=== PATIENT | female | born 1985 | race Caucasian/White ===

== ENCOUNTER 2018-02-17 10:00 | Inpatient (IN) | payer BC, SELFPAY ==
[2018-02-10 11:23] VITALS: BMI 41.3
[2018-02-17] VITALS (17 sets, daily range): BP systolic 80–132; BP diastolic 38–80; PULSE 103–133; RESP 12–21; TEMP 36.1–36.9; O2SAT 95–100; BMI 41.9
[2018-02-17 10:44] LABS: Absolute Lymphocyte Count 1.83 X10^3/ul (0.83-4.51); Absolute Neutrophil Count 6.4 X10^3/uL (2.0-7.7); Basophil# 0.01 X10^3/uL; Basophil% 0.1 % (0-1); Eosinophil# 0.07 X10^3/uL; Eosinophils% 0.8 % (0-5); Hematocrit 37.9 % (37-47); Hemoglobin 12.3 g/dl (12.0-15.0); Lymphocyte # 1.83 X10^3/ul (4.0); Lymphocyte % 20.6 % (19-41); Mean Corp Hgb Conc 32.5 g/gl (32-36); Mean Corpuscular Hgb 27.6 pg (27.0-32.0); Mean Platelet Vol. 11.8 fl (6.2-12.0); Monocyte# 0.59 X10^3/uL; Monocyte% 6.6 % (0-10); Neutrophil # 6.36 X10^3/uL (2.7-7.7); Neutrophil % 71.7 % (47-70); Platelet Count 215 K/mm3 (150-450); RBC Distribution Width CV 13.6 % (11.6-14.6); RBC Distribution Width SD 41.6 fl (35.1-43.9); Red Blood Count 4.46 M/mm3 (4.2-5.4); White Blood Count 8.9 K/mm3 (4.4-11.0)
[2018-02-17 10:50] LABS: POSITIVE COUNT NO; POSITIVE DIFFERENTIAL NO; POSITIVE MORPHOLOGY NO
[2018-02-17] MEDS: Lactated Ringers 1,000 ML 150 ML IV (11:24)
[2018-02-17] MEDS: Sodium Citrate/Citric Acid 30 ML UDC PO (13:24)
[2018-02-17] MEDS: Cefazolin 2 GM in 0.9% Normal Saline 100 ML IV (13:26)
--- NOTE | 2018-02-17 13:36 | OP.PCM_ITS ---
Delivery Classification: Scheduled Final ROSINA: 02/24/18 Gestational age: 39 Weeks and 0 Days Indications for : Breech Description of Procedure: Patient taken to OR where spinal anesthesia was placed. She was prepped and draped in normal sterile fashion in a dorsal lithotomy position with a leftward tilt. After ensuring adequacy of anesthesia the Pfannensteil skin incision was made and carried through to the underlying fascia with a bovie. The fascia was incised in the midline and carried laterally with the Alexander scissors. The rectus muscles were in the midline and the peritoneum was entered bluntly. The bladder flap was dissected down carefully with the Metzenbaum scissors and blunt dissection. The uterus was incised in a transverse fashion and then incision extended with cephalocaudad traction. The fetus was breech & buttocks elevated to uterine incision. delivered via typical breech maneuvers. The 3VC cord was clamped and cut after 1 minute delay and the infant handed off to the waiting RN. The placenta was delivered w/ gentle traction and fundal massage and the uterus was exteriorized and cleared of all clots and debris. The uterine incision was closed with 1 vicryl suture in a running locked fashion. The bovie was used to further obtain further hemostasis of the uterine incision. A second imbricating layer of monocryl was placed. The uterus was returned to the p eritoneal cavity. The pelvis was irrigated & then cleared of all clots and debris. The uterine incision was reexamined and found to be hemostatic. Some se was placed over the uterine incision due to the denuded areas. The parietal peritoneum was reapproximated with running 3-0 vicryl suture. The fascia was closed with looped PDS suture in a running standard fashion. The subcutaneous tissue was examined & any bleeding bovie cauterized. The subcutaneous tissue was reapproximated with plain gut suture. The skin was closed in a subcuticular fashion by the HISTORY CARD CLERK with me present in the labor and delivery suite. I performed the remainder of the procedure w/ assistance. Amniotic Membrane Rupture Type: Artificial Amniotic Fluid Description: Clear Placenta Disposition: [facility] Specimen(s) sent to pathology: none Drain: Crockett to straight drain Cord Entanglement: None Cord Vessel Description: 3 Vessels Esitmated Blood Loss (ml): 750ml Infant Gender: Male (1 minute): 8 (5 minute): 9 Delayed cord clamping: Yes Pre-op Antibiotic Given: Ancef 2 grams IV x1
[2018-02-17] MEDS: Oxytocin 30 units/NS 500 ml 30 UNITS/500 ML IV.SOLN 167 UNITS IV (14:25)
--- NOTE | 2018-02-17 15:06 | PCM.IMED.CSR ---
E-Zborvwr-Qqk[facility]il[facility] PostOp Date of Procedure: 02/17/18 Primary Surgeon/Physician: Melisa Valencia shared services manager: Melyssa Dozier Pre-op Diagnosis: Breech Post-Op Diagnosis: Breech Surgery/Procedure Performed: Primary low transverse Section Description of Surgical Findings:: See operative report Estimated Blood Loss: 750ml Specimens Removed: placenta Drain: Crockett to straight drain Type of Anesthesia: Spinal
--- NOTE | 2018-02-17 15:09 | OP.PN_ITS ---
M-Uchgalt-Yuuzmqav[facility] PostOp Date of Procedure: 02/17/18 Primary Surgeon/Physician: Melisa Valencia executive chef: Melyssa Dozier Pre-op Diagnosis: Breech Post-Op Diagnosis: Breech Surgery/Procedure Performed: Primary low transverse Section Description of Surgical Findings:: See operative report Estimated Blood Loss: 750ml Specimens Removed: placenta Drain: Crockett to straight drain Type of Anesthesia: Spinal
[2018-02-17] MEDS: Ketorolac 30 MG/ML Syringe IV ×2 (15:10→21:57)
[2018-02-17] MEDS: Lactated Ringers 1,000 ML 999 ML IV (16:06)
[2018-02-17] MEDS: Lactated Ringers 1,000 ML 100 ML IV (16:52)
[2018-02-18] VITALS (11 sets, daily range): BP systolic 102–123; BP diastolic 70–77; PULSE 108–125; RESP 12–20; TEMP 36.3–37.2; O2SAT 96–98
[2018-02-18] MEDS: Ketorolac 30 MG/ML Syringe IV ×4 (04:23→22:23)
[2018-02-18 08:12] LABS: Hematocrit 28.6 % (37-47); Hemoglobin 9.4 g/dl (12.0-15.0); Mean Corp Hgb Conc 32.9 g/gl (32-36); Mean Corpuscular Hgb 28.4 pg (27.0-32.0); Mean Corpuscular Volume 86.4 fL (81-99); Mean Platelet Vol. 11.8 fl (6.2-12.0); Platelet Count 190 K/mm3 (150-450); RBC Distribution Width CV 13.5 % (11.6-14.6); Red Blood Count 3.31 M/mm3 (4.2-5.4)
--- NOTE | 2018-02-18 08:18 | PCM.PN.OB ---
Subjective: Pain controlled - Physical Exam General: Alert, Oriented x3 Abdomen: Soft, Non Tender, Non-Distended - ff mid & below umb; inc - bandage c/d/i Extremities: No Calf Tenderness Vital Signs Temp Pulse Resp BP Pulse Ox 97.4 F L 114 H 15 112/75 97 02/18/18 04:42 02/18/18 06:00 02/18/18 06:00 02/18/18 04:42 02/18/18 06:00 Oxygen Delivery Method Room Air Weight: 252 lb 3.341 oz Body Mass Index (BMI) 41.9 Intake and Output for Last 24 Hours 02/16/18 02/17/18 02/18/18 23:59 23:59 23:59 Intake Total 2719 / 2719 Output Total 400 / 400 1000 / 1000 Balance 2319 / 2319 -1000 / -1000 Laboratory Tests Past 24 Hrs 02/17/18 02/17/18 02/18/18 10:15 10:15 08:00 WBC 8.9 Pending RBC 4.46 Pending Hgb 12.3 Pending Hct 37.9 Pending MCV 85.0 Pending MCH 27.6 Pending MCHC 32.5 Pending RDW 13.6 Pending RDW Differential 41.6 Pending Plt Count 215 Pending MPV 11.8 Immature Gran % (Auto) 0.200 Neut % (Auto) 71.7 H Lymph % (Auto) 20.6 Edmunds % (Auto) 6.6 Eos % (Auto) 0.8 Baso % (Auto) 0.1 Absolute Neuts (auto) 6.4 Absolute Lymphs (auto) 1.83 Total Counted Not Reportable Blood Type AB POSITIVE Antibody Screen NEGATIVE Medical Necessity - Tobacco Use Smoking Status: Never smoker Assessment/Plan POD#1 Heme - cbc pending, mild tachycardia GI - ADAT - d/c granados later today Routine care
[2018-02-18 08:19] LABS: Scan Indicated on CBC? Y/N NO
--- NOTE | 2018-02-18 08:20 | DCINST_ITS ---
Discharge Diet: No Restrictions Discharge Activity: Return to Normal Activity, May Not Drive - for 2 weeks, May not drive while taking narcotic pain medications., May Shower, May Take a Tub Bath - in 7 days. May resume sexual activity in: 4-6 weeks Lifting Restrictions: 20 pounds Additional Activity Instructions:: Nothing in the vagina for 4-6 weeks. You may return to work/school in 6 weeks. Call your doctor if your incision/area has: Continuous Slow Oozing, Sudden Increased Bleeding, Increased Pain/ Swelling, Increased Redness, Foul Smelling Discharge Call your doctor if you observe: Fever of 101 or Higher, Using more than one pad per hour - for 2 hours Suture Line Care: Avoid Pulling/Pushing, Avoid Pinching/Bending Cleanse incision/area with: Keep Dressing Clean & Dry Additional Instructions: If you experience any of the following, contact your healthcare provider. * Bleeding that soaks a pad every hour for 2 hours * Fever 100.4 or higher * Unrelieved incision or abdominal pain * Swelling, redness, discharge or bleeding from your incision or episiotomy site * Your incision begins to separate * Problems urinating (including inability to urinate or burning while urinating). * Visual changes * Severe headache * Flu-like symptoms * Pain or redness in one of both of your breasts * Pain, warmth, tenderness or swelling in your legs, especially the calf area * Frequent nausea and vomiting * Symptoms of depression or anxiety If you experience any of the following, call 911 or go to the nearest Emergency Room. * Chest pain * Problems breathing * Seizure activity * Partial or complete paralysis of a body part, slurred speech, weakness or drooping of the face, or a sudden inability to walk or hold your balance Allergies/Adverse Reactions: Allergies pseudoephedrine Adverse Reaction (Verified 02/17/18 11:25) Other heart racing Medications to take at Discharge Claritin 10 mg PO DAILY PRN PRN 02/10/18 Multivitamin Tablet 1 tablet PO DAILY 02/10/18 Vitamin D 2,000 units PO DAILY 02/10/18 Zantac 150 mg PO DAILY 02/10/18 Ibuprofen [Motrin] 600 mg PO Q6H PRN PRN #60 tablet 02/18/18 Senna/Docusate Sodium [Senokot-S] 1 - 2 tab PO DAILY PRN #30 tablet 02/18/18 SimETHICONE [Mylicon] 80 mg PO PCHS PRN #30 tablet 02/18/18 The following prescriptions were given: Ibuprofen [Motrin] 600 mg PO Q6H PRN PRN #60 tablet PRN Reason: Mild Pain (-05/15) Senna/Docusate Sodium [Senokot-S] 1 - 2 tab PO DAILY PRN #30 tablet PRN Reason: Constipation SimETHICONE [Mylicon] 80 mg PO PCHS PRN #30 tablet PRN Reason: Indigestion/stomach pain Follow-Up: Call to make an appointment with your doctor for an incision check in 1-2 weeks. You will also need a 6 week post- follow up appointment. Test results from this visit will be discussed in further detail at your follow- up appointment, if applicable. Please Follow Up With: Heidi Villa MD - Call to make an appointment for an incision check in 1-2 [phone] When: You will need a post- check in 6 weeks. Primary Care Physician: Darcie Jaffe MD [Primary Care Provider] -
[2018-02-18] MEDS: Senna/Docusate Sodium 1 Tablet PO (10:52)
[2018-02-18] MEDS: 0.9% Saline Lock 10 ML Syringe IV (22:26)
[2018-02-19] VITALS: PULSE 110; RESP 17; TEMP 36.6
[2018-02-19] MEDS: Ketorolac 30 MG/ML Syringe IV ×2 (04:27→10:08)
[2018-02-19] MEDS: 0.9% Saline Lock 10 ML Syringe IV ×2 (04:28→10:09)
--- NOTE | 2018-02-19 07:58 | PCM.PN.OB ---
Subjective: pt seen at bedside, doing well. pt reports good pain control. lochia mild. breast feeding difficulties- group segment consultant helping. denies CP, SOB, dizziness. reports +BM. - Physical Exam General: Alert, Oriented x3 Abdomen: Soft, Non-Distended, - - fundus firm. incision dressing dry and intact Extremities: No Calf Tenderness Vital Signs Temp Pulse Resp BP Pulse Ox 97.9 F 110 H 17 119/76 96 02/19/18 00:00 02/19/18 00:00 02/19/18 00:00 02/18/18 20:30 02/18/18 15:20 Oxygen Delivery Method Room Air Weight: 114.4 kg Body Mass Index (BMI) 41.9 Intake and Output for Last 24 Hours 02/17/18 02/18/18 02/19/18 23:59 23:59 23:59 Intake Total 2719 / 2719 1803 / 1803 Output Total 400 / 400 2825 / 2825 Balance 2319 / 2319 -1022 / -1022 Laboratory Tests Past 24 Hrs 02/18/18 08:00 WBC 11.0 RBC 3.31 L Hgb 9.4 L Hct 28.6 L MCV 86.4 MCH 28.4 MCHC 32.9 RDW 13.5 RDW Differential 41.0 Plt Count 190 MPV 11.8 Medical Necessity - Tobacco Use Smoking Status: Never smoker Assessment/Plan POD#2 doing well\ routine care pain mgmt ambulation assistance
[2018-02-19 08:20] VITALS: BP 112/77; PULSE 108; RESP 16; TEMP 36.7; O2SAT 97
[2018-02-19 14:00] VITALS: BP 117/79; PULSE 112; RESP 16; TEMP 36.4; O2SAT 97
[2018-02-19] MEDS: Senna/Docusate Sodium 1 Tablet PO (17:15)
[2018-02-19] MEDS: Ibuprofen 600 MG Tablet PO (17:16)
[2018-02-19 19:50] VITALS: BP 126/80; PULSE 115; RESP 16; TEMP 36.6; O2SAT 96
[2018-02-20 01:50] VITALS: BP 123/79; PULSE 98; RESP 16; TEMP 36.6; O2SAT 98
[2018-02-20] MEDS: Ibuprofen 600 MG Tablet PO (08:01)
[2018-02-20 08:05] VITALS: BP 114/71; PULSE 107; RESP 16; TEMP 36.6; O2SAT 97
--- NOTE | 2018-02-20 09:12 | PCM.PN.OB ---
Subjective: pt seen at bedside, doing well. pt reports good pain control. lochia mild. Breast feeding. Voiding w/o difficulty. - Physical Exam General: Alert, Oriented x3 Abdomen: Soft, Non-Distended, - - fundus firm. incision dressing dry and intact Extremities: No Calf Tenderness Vital Signs Temp Pulse Resp BP Pulse Ox 97.9 F 107 H 16 114/71 97 02/20/18 08:05 02/20/18 08:05 02/20/18 08:05 02/20/18 08:05 02/20/18 08:05 Oxygen Delivery Method Room Air Weight: 114.4 kg Body Mass Index (BMI) 41.9 Intake and Output for Last 24 Hours 02/18/18 02/19/18 02/20/18 23:59 23:59 23:59 Intake Total 1803 / 1803 Output Total 2825 / 2825 Balance -1022 / -1022 Medical Necessity - Tobacco Use Smoking Status: Never smoker Assessment/Plan POD#3, doing well routine care pain mgmt dc home
--- NOTE | 2018-02-20 09:14 | PCM.DC.BLA ---
Discharge Summary Date of Admission: 02/17/18 Date of Discharge: 02/20/18 Summary: patient underwent primary Low transverse c/s for breech presentation- uncomplicated delivery and post op course. pt discharged home on POD#3. - Physical Exam Vital Signs Temp Pulse Resp BP Pulse Ox 97.9 F 107 H 16 114/71 97 02/20/18 08:05 02/20/18 08:05 02/20/18 08:05 02/20/18 08:05 02/20/18 08:05 Oxygen Delivery Method Room Air Weight: 114.4 kg Body Mass Index (BMI) 41.9 Intake and Output for Last 24 Hours 02/18/18 02/19/18 02/20/18 23:59 23:59 23:59 Intake Total 1803 / 1803 Output Total 2825 / 2825 Balance -1022 / -1022
--- OUTSIDE RECORDS SUMMARY | 2018-04-05 04:09 | XMS RPT_ITS ---
:1985 Author Organization [facility] Care Team Providers Name Role Phone NESHA LEONG (EXPLOSIVE ORDNANCE MANAGER) Attending Unavailable NEYHART ANAYA, HEIDI Attending Unavailable NEYHART ANAYA, HEIDI Referring Unavailable CARRINGTON BRUMFIELD Attending Unavailable NEYHART ANAYA, HEIDI Referring Unavailable ANGELA LIMA (CNM) Attending Unavailable NEYHART ANAYA, HEIDI Referring Unavailable SADA ANGELA (CNM) Referring Unavailable HASAN, ASHIA Attending Unavailable SADA ANGELA (CNM) Referring Unavailable MARY, THERESA (CNM) Attending Unavailable NEYHART ANAYA, HEIDI Referring Unavailable HASAN, ASHIA Referring Unavailable LIMA, ANGELA (CNM) Referring Unavailable SCARLET SIDHU Attending Unavailable MARY THERESA (CNM) Referring Unavailable MARY THERESA (CNM) Attending Unavailable NEYHART ANAYA, HEIDI Referring Unavailable MARY, THERESA (CNM) Attending Unavailable SADA ANGELA (CNM) Attending Unavailable NEYHART ANAYA, HEIDI Referring Unavailable MARY THERESA (CNM) Attending Unavailable NEYHART ANAYA, HEIDI Attending Unavailable DELANEY ANAYA HEIDI Referring Unavailable THERESA HERNANDEZ (CNM) Attending Unavailable THERESA HERNANDEZ (CNM) Attending Unavailable THERESA HERNANDEZ (CNM) Referring Unavailable ANGELA LIMA (CNM) Attending Unavailable SCARLET SIDHU Attending Unavailable ANGELA LIMA (CNM) Referring Unavailable ANGELA LIMA (CNM) Attending Unavailable ROCK ZHANG (EXPLOSIVE ORDNANCE MANAGER) Attending Unavailable DANIEL PHAM Attending Unavailable RAMIRO, KARMON Attending Unavailable RAMIRO, KARMON Attending Unavailable Shahab, Marlena Admitting Unavailable Shahab, Marlena Attending Unavailable Shahab, Marlena Referring Unavailable Ld, Darcie Primary Care Unavailable Ramiro, Karmon Admitting Unavailable Ramiro, Karmon Attending Unavailable Ramiro, Karmon Referring Unavailable Ld, Darcie Primary Care Unavailable Ramiro, Karmon Admitting Unavailable Ramiro, Karmon Attending Unavailable Ramiro, Karmon Referring Unavailable Ld, Darcie Primary Care Unavailable PROBLEMS PROBLEMS DATE TYPE CONDITION / CODE ATTENDING STATUS SOURCE 12/24/2017 Active 29 weeks gestation Active [facility] of / [facility] [place] Z3A.29(ICD-10) Repository 12/24/2017 Active Encounter for Active [facility] supervision of [facility] [place] other normal Repository , third trimester / Z34.83(ICD-10) 12/24/2017 Active Encounter for Active [facility] screening for [facility] [place] other suspected Repository endocrine disorder / Z13.29(ICD-10) 07/06/2017 Active Supervision of Active [facility] with [facility] [place] other poor Repository reproductive or obstetric history, unspecified trimester / O09.299(ICD-10) 11/26/2017 Active 27 weeks gestation Active [facility] of / [facility] [place] Z3A.27(ICD-10) Repository 12/28/2016 Active Thyrotoxicosis, Active [facility] unspecified [facility] [place] without thyrotoxic Repository crisis or storm / E05.90(ICD-10) 08/13/2017 Active Hypothyroidism, Active [facility] unspecified / [facility] [place] E03.9(ICD-10) Repository 08/13/2017 Active Encounter for Active [facility] [place] screening, Repository unspecified / Z36.9(ICD-10) 08/13/2017 Active 12 weeks gestation ANGELA LIMA Active [facility] of / (CNM) [facility] Z3A.12(ICD-10) Repository 07/16/2017 Active Encounter for NA Active [facility] supervision of [facility] other normal Repository , first trimester / Z34.81(ICD-10) 07/06/2017 Active Unknown / NA Active [facility] UNK(Unknown) [facility] [place] Repository PROCEDURES PROCEDURES No Procedure Records FoundRESULTS RESULTS PROGRESS Observed: 02/24/2018 Status: COMPLETED Source: [place] 10:47 AM [facility] REPOSITORY HNO ID: [id number] Author: Robb Rubio Service: (none) Author Type: Physician Type: Progress Notes Filed: 02/24/2018 1:08 PM Note Text: Renetta Lovell is a 32 year old female who presents for incision check. HPI: Patient presents for incision check. She is doing well. PAST MEDICAL HISTORY Diagnosis Date - Abnormal Pap smear of cervix ASCUS +HPV - Depression - GERD (gastroesophageal reflux disease) - Hiatal hernia - Migraines - Thyroid nodule PAST SURGICAL HISTORY Procedure Laterality Date - DELIVERY ONLY 02/17/2018 C/S low transverse - CHOLECYSTECTOMY HX 04/06/2016 - COLONOSCOPY - EGD Hiatal Hernia FAMILY HISTORY Problem Relation Age of Onset - other (Gout) Father - other (hypoglycemia) Sister - other (colon issues) Maternal Grandfather - other (lung issues) Paternal Grandmother - Psychiatry Paternal Grandfather Paranoid schizophrenia - Heart Paternal Grandfather Social History Marital status: Spouse name: Vlad Years of education: 16 Number of children: Occupational History Occupation Employer Comment [employer] Social History Main Topics Smoking status: Never Smoker Smokeless tobacco: Never Used Alcohol use: No Drug use: No Sexual activity: Yes Partners with: Male Current Outpatient Prescriptions: calcium carbonate/vitamin D3 (VITAMIN D-3 ORAL) Take 2,000 Units by mouth once daily. loratadine (CLARITIN) 10 mg tablet Take 10 mg by mouth once daily. PNV95/FERROUS FUMARATE/FA ( ORAL) Take 1 tablet by mouth once daily. ranitidine HCl (ZANTAC ORAL) Take by mouth. No current facility-administered medications for this visit. Allergies As of Date: 02/24/2018 Allergen Noted Reaction PSEUDOEPHEDRINE-GUAIFENESIN 04/16/2017 Other: See Comments Fully Assessed 02/08/2018 Allergies and current medication updated:Yes EXAM: LMP 05/20/2017 GENERAL: pleasant, female in no apparent distress ABDOMEN: soft, non-tender and no masses INCISION: bandage removed, c/d/i ASSESSMENT AND PLAN: 32yo female for incision check Incision healing well F/u for 6wk PP check or PRN Robb Rubio MD DISCHARGE SUMMARY Observed: 02/20/2018 Status: F Source: [place] 9:16 AM [facility] REPOSITORY [facility] Medical Records Department [address] [place] [address] Discharge Summary 02/20/1814 MR#: [id number] Acct: [id number] Name: RENETTA LOVELL Rep #: [id number] : 1985 32 From: Heidi Anaya MD PCP: Darcie Jaffe MD Status: ADM IN Location: [place] [address] Discharge Summary Date of Admission: 02/17/18 Date of Discharge: 02/20/18 Summary: patient underwent primary Low transverse c/s for breech presentation- uncomplicated delivery and post op course. pt discharged home on POD#3. - Physical Exam Vital Signs Temp Pulse Resp BP Pulse Ox 97.9 F 107 H 16 114/71 97 02/20/18 08:05 02/20/18 08:05 02/20/18 08:05 02/20/18 08:05 02/20/18 08:05 Oxygen Delivery Method Room Air Weight: 114.4 kg Body Mass Index (BMI) 41.9 Intake and Output for Last 24 Hours Intake Total 1803 / 1803 Output Total 2825 / 2825 Balance -1022 / -1022 02/20/18 0916 <Electronically signed by Heidi Anaya MD> Date Heidi Villa MD Cosigner Signature (if applicable): Date CC: Darcie Jaffe MD; Heidi Villa MD Signed PROGRESS Observed: 02/18/2018 Status: COMPLETED Source: [place] 2:17 PM [facility] REPOSITORY HNO ID: [id number] Author: Jessica Fagan LPN Service: (none) Author Type: (none) Type: Progress Notes Filed: 02/18/2018 2:18 PM Note Text: Pt delivered via C/S at [facility] on 02/17/[address] Roman. See OB Outcome note. Jessica Fagan LPN DISCHARGE INSTRUCTION Observed: 02/18/2018 Status: F Source: [place] 8:20 AM [facility] REPOSITORY [facility] Medical Records Department [address] [place] [address] Instructions for Home/Discharge Instructions 02/18/18819 MR#: [id number] Acct: [id number] Name: RENETTA LOVELL Rep #: [id number] : 1985 32 From: Heidi Anaya MD PCP: Darcie Jaffe MD Status: ADM IN Discharge Diet: No Restrictions Discharge Activity: Return to Normal Activity, May Not Drive - for 2 weeks, May not drive while taking narcotic pain medications., May Shower, May Take a Tub Bath - in 7 days. May resume sexual activity in: 4-6 weeks Lifting Restrictions: 20 pounds Additional Activity Instructions:: Nothing in the vagina for 4-6 weeks. You may return to work/school in 6 weeks. Call your doctor if your incision/area has: Continuous Slow Oozing, Sudden Increased Bleeding, Increased Pain/ Swelling, Increased Redness, Foul Smelling Discharge Call your doctor if you observe: Fever of 101 or Higher, Using more than one pad per hour - for 2 hours Suture Line Care: Avoid Pulling/Pushing, Avoid Pinching/Bending Cleanse incision/area with: Keep Dressing Clean AND Dry Additional Instructions: If you experience any of the following, contact your healthcare provider. * Bleeding that soaks a pad every hour for 2 hours * Fever 100.4 or higher * Unrelieved incision or abdominal pain * Swelling, redness, discharge or bleeding from your incision or episiotomy site * Your incision begins to separate * Problems urinating (including inability to urinate or burning while urinating). * Visual changes * Severe headache * Flu-like symptoms * Pain or redness in one of both of your breasts * Pain, warmth, tenderness or swelling in your legs, especially the calf area * Frequent nausea and vomiting * Symptoms of depression or anxiety If you experience any of the following, call 911 or go to the nearest Emergency Room. * Chest pain * Problems breathing * Seizure activity * Partial or complete paralysis of a body part, slurred speech, weakness or drooping of the face, or a sudden inability to walk or hold your balance Allergies/Adverse Reactions: Allergies pseudoephedrine Adverse Reaction (Verified 02/17/18 11:25) Other heart racing Medications to take at Discharge Claritin 10 mg PO DAILY PRN PRN 02/10/18 Multivitamin Tablet 1 tablet PO DAILY 02/10/18 Vitamin D 2,000 units PO DAILY 02/10/18 Zantac 150 mg PO DAILY 02/10/18 Ibuprofen [Motrin] 600 mg PO Q6H PRN PRN #60 tablet 02/18/18 Senna/Docusate Sodium [Senokot-S] 1 - 2 tab PO DAILY PRN #30 tablet 02/18/18 SimETHICONE [Mylicon] 80 mg PO PCHS PRN #30 tablet 02/18/18 The following prescriptions were given: Ibuprofen [Motrin] 600 mg PO Q6H PRN PRN #60 tablet PRN Reason: Mild Pain (1-310) Senna/Docusate Sodium [Senokot-S] 1 - 2 tab PO DAILY PRN #30 tablet PRN Reason: Constipation SimETHICONE [Mylicon] 80 mg PO PCHS PRN #30 tablet PRN Reason: Indigestion/stomach pain Follow-Up: Call to make an appointment with your doctor for an incision check in 1-2 weeks. You will also need a 6 week post- follow up appointment. Test results from this visit will be discussed in further detail at your follow-up appointment, if applicable. Please Follow Up With: Heidi Villa MD - Call to make an appointment for an incision check in 1-2 [phone] When: You will need a post- check in 6 weeks. Primary Care Physician: Darcie Jaffe MD [Primary Care Provider] - 02/18/18 0820 <Electronically signed by Heidi Anaya MD> Date Heidi Villa MD CC: Darcie Jaffe MD CBC-COMPLETE BLOOD CNT Collected: 02/18/2018 Status: F Source: [place] NO DIFF 8:00 AM [facility] REPOSITORY Order Comment: Comments: Day #1 Reason for Laboratory Test TYPE CODE TESTS RESULT OUT OF RANGE REFERENCE UNITS LAB L100.1000 4.4-11.0 K/mm3 Normal WBC 11.0 LAB L100.1200 4.2-5.4 M/mm3 Low RBC 3.31 LAB L100.1300 12.0-15.0 g/dl Low HGB 9.4 LAB L100.1400 37-47 % Low HCT 28.6 LAB L100.1500 81-99 fL Normal MCV 86.4 LAB L100.1600 27.0-32.0 pg Normal MCH 28.4 LAB L100.1700 32-36 g/gl Normal MCHC 32.9 LAB L100.1810 11.6-14.6 % Normal RDW CV 13.5 LAB L100.1820 35.1-43.9 fl Normal RDW SD 41.0 LAB L100.1900 150-450 K/mm3 Normal PLT 190 LAB L100.2000 6.2-12.0 fl Normal MPV 11.8 Performed By: #### L100.0500 #### [facility] [address] [place], [address] HOSP Observed: 02/18/2018 Status: COMPLETED Source: [place] 12:00 AM [facility] REPOSITORY Patient Update (WOOB) RENETTA LOVELL ([id number]) 1985 F Date Time Provider Department 02/18/18 ROBB RUBIO During your visit today, we recorded the following information about you: Jessica Fagan MARLENE 02/18/2018 2:18 PM Signed Pt delivered via C/S at [facility] on 02/17/[address] Rubio and RENETTA. See OB Outcome note. Jessica Jordanruthy ROSARIO Allergies As of Date: 02/18/2018 Noted Allergy Reaction PSEUDOEPHEDRINE-GUAIFENESIN 04/16/2017 14 - Other: See Comments Date Reviewed: 02/08/2018 Reviewed by: Robb Rubio - Fully Assessed Prescriptions as of 02/18/2018 Sig: VITAMIN D-3 ORAL Take 2,000 Units by mouth onc* LORATADINE 10 MG TABLET Take 10 mg by mouth once odell* ORAL Take 1 tablet by mouth once d* ZANTAC ORAL Take by mouth. Problem List As Of Date 02/18/2018 Noted Resolved Biliary dyskinesia [K82.8] INVALID FOR* GERD (gastroesophageal reflux disease) [K21.9] Depression [F32.9] Hiatal hernia [K44.9] Migraines [G43.909] Subclinical hyperthyroidism [E05.90] INVALID FOR* Current with history of spontaneous a*INVALID FOR* More... History of depression [Z86.59] INVALID FOR* More... Obesity in [O99.210] INVALID FOR* More... History of goiter [Z86.39] INVALID FOR* More... Encounter Status:Closed by JESSICA FAGAN LPN on 02/18/18 OPERATIVE REPORT Observed: 02/17/2018 Status: F Source: [place] 3:12 PM [facility] REPOSIT[facility] Medical Records Department [address] [place] [address] Operative Report 02/17/18 1334 MR#: [id number] Acct: [id number] Name: RENETTA LOVELL Rep #: [id number] : 1985 32 From: Robb Rubio PCP: Darcie Jaffe MD Status: ADM IN Y Location: [id number] Delivery Classification: Scheduled Final ROSINA: 02/24/18 Gestational age: 39 Weeks and 0 Days Indications for : Breech Description of Procedure: Patient taken to OR where spinal anesthesia was placed. She was prepped and draped in normal sterile fashion in a dorsal lithotomy position with a leftward tilt. After ensuring adequacy of anesthesia the Pfannensteil skin incision was made and carried through to the underlying fascia with a bovie. The fascia was incised in the midline and carried laterally with the Alexander scissors. The rectus muscles were in the midline and the peritoneum was entered bluntly. The bladder flap was dissected down carefully with the Metzenbaum scissors and blunt dissection. The uterus was incised in a transverse fashion and then incision extended with cephalocaudad traction. The fetus was breech AND buttocks elevated to uterine incision. Infant delivered via typical breech maneuvers. The 3VC cord was clamped and cut after 1 minute delay and the infant handed off to the waiting RN. The placenta was delivered w/ gentle traction and fundal massage and the uterus was exteriorized and cleared of all clots and debris. The uterine incision was closed with 1 vicryl suture in a running locked fashion. The bovie was used to further obtain further hemostasis of the uterine incision. A second imbricating layer of monocryl was placed. The uterus was returned to the peritoneal cavity. The pelvis was irrigated AND then cleared of all clots and debris. The uterine incision was reexamined and found to be hemostatic. Some se was placed over the uterine incision due to the denuded areas. The parietal peritoneum was reapproximated with running 3- 0 vicryl suture. The fascia was closed with looped PDS suture in a running standard fashion. The subcutaneous tissue was examined AND any bleeding bovie cauterized. The subcutaneous tissue was reapproximated with plain gut suture. The skin was closed in a subcuticular fashion by the GRANITE SANDBLASTER APPRENTICE with me present in the labor and delivery suite. I performed the remainder of the procedure w/ assistance. Amniotic Membrane Rupture Type: Artificial Amniotic Fluid Description: Clear Placenta Disposition: [facility] Specimen(s) sent to pathology: none Drain: Crockett to straight drain Cord Entanglement: None Cord Vessel Description: 3 Vessels Esitmated Blood Loss (ml): 750ml Gender: Male (1 minute): 8 (5 minute): 9 Delayed cord clamping: Yes Pre-op Antibiotic Given: Ancef 2 grams IV x1 02/17/18 1512 <Electronically signed by Robb Rubio > Date Robb Rubio CC: Darcie Jaffe MD; Robb Rubio Signed CBC W/DIFF, AUTOMATED Collected: 02/17/2018 Status: F Source: [place] 10:15 AM [facility] REPOSITORY TYPE CODE TESTS RESULT OUT OF RANGE REFERENCE UNITS LAB L100.1000 4.4-11.0 K/mm3 Normal WBC 8.9 LAB L100.1200 4.2-5.4 M/mm3 Normal RBC 4.46 LAB L100.1300 12.0-15.0 g/dl Normal HGB 12.3 LAB L100.1400 37-47 % Normal HCT 37.9 LAB L100.1500 81-99 fL Normal MCV 85.0 LAB L100.1600 27.0-32.0 pg Normal MCH 27.6 LAB L100.1700 32-36 g/gl Normal MCHC 32.5 LAB L100.1810 11.6-14.6 % Normal RDW CV 13.6 LAB L100.1820 35.1-43.9 fl Normal RDW SD 41.6 LAB L100.1900 150-450 K/mm3 Normal PLT 215 LAB L100.2000 6.2-12.0 fl Normal MPV 11.8 LAB L100.2100 47-70 % High NEUT% 71.7 LAB L100.2200 19-41 % Normal LY% 20.6 LAB L100.2300 0-10 % Normal MONO% 6.6 LAB L100.2400 0-5 % Normal EO% 0.8 LAB L100.2500 0-1 % Normal BASO% 0.1 LAB L100.2550 0.0-0.9 % Normal IM GRAN % 0.200 Result Comment: IG% - Immature Granulocytes (promyelocytes, myelocytes and metamyelocytes) > 1% indicates that a LEFT SHIFT is Present. LAB L100.2620 2.0-7.7 X10 3/uL Normal Absolute Neut 6.4 LAB L100.2720 0.83-4.51 X10 3/ul Normal Absolute Lymph 1.83 Performed By: #### L100.0100 #### [facility] [address] [place], [address] TYPE AND SCREEN Collected: 02/17/2018 Status: F Source: [place] 10:15 AM [facility] REPOSITORY Order Comment: Reason for Type AND Screen/Red Cells: SURGERY Type of Surgery: TYPE CODE TESTS RESULT OUT OF RANGE REFERENCE UNITS LAB B10.0800 AB Normal BLOOD TYPE GEL POSITIVE LAB B100.4000 Normal Antibody NEGATIVE Screen Performed By: #### B101.7450 #### [facility] [address] [place], [address] PROGRESS Observed: 02/08/2018 Status: COMPLETED Source: [place] 4:16 PM [facility] REPOSITORY HNO ID: [id number] Author: Robb Rubio Service: (none) Author Type: Physician Type: Progress Notes Filed: 02/08/2018 4:19 PM Note Text: HISTORY and PHYSICAL Renetta Lovell is a 32 year old female who presents for pre- op visit. HPI: Patient presents for pre-op visit. PAST MEDICAL HISTORY Diagnosis Date - Abnormal Pap smear of cervix ASCUS +HPV - Depression - GERD (gastroesophageal reflux disease) - Hiatal hernia - Migraines - Thyroid nodule PAST SURGICAL HISTORY Procedure Laterality Date - CHOLECYSTECTOMY HX 04/06/2016 - COLONOSCOPY - EGD Hiatal Hernia FAMILY HISTORY Problem Relation Age of Onset - other (Gout) Father - other (hypoglycemia) Sister - other (colon issues) Maternal Grandfather - other (lung issues) Paternal Grandmother - Psychiatry Paternal Grandfather Paranoid schizophrenia - Heart Paternal Grandfather Social History Marital status: Spouse name: Vlad Years of education: 16 Number of children: Occupational History Occupation Employer Comment [employer] Social History Main Topics Smoking status: Never Smoker Smokeless tobacco: Never Used Alcohol use: No Drug use: No Sexual activity: Yes Partners with: Male Current Outpatient Prescriptions: calcium carbonate/vitamin D3 (VITAMIN D-3 ORAL) Take 2,000 Units by mouth once daily. loratadine (CLARITIN) 10 mg tablet Take 10 mg by mouth once daily. ranitidine HCl (ZANTAC ORAL) Take by mouth. PNV95/FERROUS FUMARATE/FA ( ORAL) Take 1 tablet by mouth once daily. No current facility-administered medications for this visit. Allergies As of Date: 02/08/2018 Allergen Noted Reaction PSEUDOEPHEDRINE-GUAIFENESIN 04/16/2017 Other: See Comments Fully Assessed 02/08/2018 Allergies and current medication updated:Yes EXAM: BP 110/72 Wt 246 lb (111.6kg) LMP 05/20/2017 GENERAL: pleasant, female in no apparent distress CHEST: Clear to auscultation Normal inspiratory effort Regular rate and rhythm ABDOMEN: soft, non-tender and no masses PELVIC: deferred NEURO: alert and oriented x3,exam grossly non-focal EXTREMITIES: normal ASSESSMENT AND PLAN: 32yo female for primary for breech Admit to [facility]. MOD - for breech. Patient declines version. Discussed R/B/A AND informed consent signed. Routine care. Robb Rubio MD GROUP B STREP PCR Collected: 01/28/2018 Status: F Source: [place] 9:40 AM [facility] REPOSITORY TYPE CODE TESTS RESULT OUT OF REFERENCE UNITS RANGE LAB GBPCRT Negative for GROUP Group B B STREP PCR Streptococcus by PCR. Performed By: #### GBPCR #### [facility] [address] [place], [place] [address] PROGRESS Observed: 01/20/2018 Status: COMPLETED Source: [place] 4:08 PM [facility] REPOSITORY HNO ID: [id number] Author: Yuli Emerson Ma Service: (none) Author Type: (none) Type: Progress Notes Filed: 01/20/2018 5:03 PM Note Text: Patient identified by name and date of . Renetta Lovell presents today for a vaccination of Tdap. Patient denies an allergy to latex: yes Patient denies a severe (life-threatening) allergy to a previous dose of Tdap, DTP, DTaP, DT or Td vaccine. Yes Patient denies history of epilepsy or neurological problems: Yes Patient is afebrile and denies being moderately or severely ill: Yes Patient denies history of Guillain-Unicoi Syndrome (a severe paralytic illness): Yes Tdap Adacel injection was given without incident. See immunizations for details of immunizations administered today. VIS sheet provided: Yes Provider Angela Lima CNM was present in office at time of injection. Yuli Emerson Ma PROGRESS Observed: 01/18/2018 Status: COMPLETED Source: [place] 9:05 AM [facility] REPOSITORY HNO ID: [id number] Author: Lorraine Negro RN Service: (none) Author Type: (none) Type: Progress Notes Filed: 01/18/2018 9:08 AM Note Text: CLASS Date Attended: January 17, 2018 Introduction Credentials Expectations of a 3-hour class 1. Review of handouts Stages of labor video Stages to call the doctor 1. SROM 2. Cervical changes 3. Bleeding vs. bloody show 4. Decreased movement Hospital Procedures 1. Internal/external monitors 2. IV therapy 3. AROM 4. Pitocin Pain Management 1. Epidural 2. Other pain medications 3. No medicinal comfort measures 4. Breathing/pushing Delivery methods 1. 2. Forceps 3. Vacuum extractor Physician presentations 1. OB-skills instructor 2. Double Reamer Operator 1. Mom's first hour 2. baby's first hour 3. baby's discharge protocol Completed childbirth education class. Lorraine Negro RN CNCNPATED Observed: 01/17/2018 Status: COMPLETED Source: [place] 12:00 AM [facility] REPOSITORY Education (WOOB) RENETTA LOVELL ([id number]) 1985 F Date Time Provider Department 01/17/18 NURSE PNOB [facility] WSTR WOOB Reason for Visit: Class [4072] Progress Notes: Lorraine Negro RN 01/18/2018 9:08 AM Signed CLASS Date Attended: January 17, 2018 Introduction Credentials Expectations of a 3-hour class 1. Review of handouts Stages of labor video Stages to call the doctor 1. SROM 2. Cervical changes 3. Bleeding vs. bloody show 4. Decreased movement Hospital Procedures 1. Internal/external monitors 2. IV therapy 3. AROM 4. Pitocin Pain Management 1. Epidural 2. Other pain medications 3. No medicinal comfort measures 4. Breathing/pushing Delivery methods 1. 2. Forceps 3. Vacuum extractor Physician presentations 1. OB-skills instructor 2. Double Reamer Operator 1. Mom's first hour 2. baby's first hour 3. baby's discharge protocol Completed childbirth education class. Lorraine Negro RN During your visit today, we recorded the following information about you: Allergies As of Date: 01/17/2018 Noted Allergy Reaction PSEUDOEPHEDRINE-GUAIFENESIN 04/16/2017 14 - Other: See Comments Date Reviewed: 01/14/2018 Reviewed by: Scarlet Sidhu - Fully Assessed Prescriptions as of 01/17/2018 Sig: VITAMIN D-3 ORAL Take 2,000 Units by mouth onc* LORATADINE 10 MG TABLET Take 10 mg by mouth once odell* ZANTAC ORAL Take by mouth. LACTOBACILLUS ACIDOPHILUS 10 * Take by mouth once daily. POLYETHYLENE GLYCOL 3350 17 G* Take 17 g by mouth twice odell* ORAL Take 1 tablet by mouth once d* Encounter Status:Closed by LORRAINE NEGRO RN on 01/18/18 PROGRESS Observed: 01/14/2018 Status: COMPLETED Source: [place] 12:53 PM [facility] REPOSITORY HNO ID: [id number] Author: Scarlet Sidhu Service: (none) Author Type: Physician Type: Progress Notes Filed: 01/14/2018 12:54 PM Note Text: A fountain intrauterine The size is AGA Estimated Date of Delivery: 02/24/18 EGA = 34w1d The anatomy appears normal in the areas visualized. The amniotic fluid volume is normal. There is no evidence of effusions and/ or hydrops. The placenta is fundal. RECOMMENDATIONS: - Self-assessment of kick counts - Follow up ultrasound as clinically indicated Observed: 01/07/2018 Status: F Source: [place] BACT/CAND VAG GRM ST 3:00 PM [facility] REPOSITORY Sp. Request/Comment: - Swab Smear Result - BACTERIAL VAGINOSIS RESULT: Stain results consistent with normal vaginal cassy. Moderate Polymorphonuclear leukocytes No Yeast observed Performed By: #### BVCNSM #### [facility] [address] [place], [place] [id number] TSH Collected: 12/24/2017 Status: F Source: [place] 4:32 PM [facility] REPOSITORY TYPE CODE TESTS RESULT OUT OF RANGE REFERENCE UNITS LAB TSH 0.400-5.500 uU/mL Low TSH 0.161 Result Comment: If the patient is , TSH reference range varies by gestational period: First Trimester 0.100-2.500 uU/mL Second Trimester 0.200-3.000 uU/mL Third Trimester 0.300-3.000 uU/mL References: 1. Corral L, Regla M, Jerry EK, et al. Management of Thyroid Dysfunction during and : An Endocrine Society Clinical Practice Guideline. J Clin Endocrinol Metab, 2012:97:7203-9074. 2. Luther MCELROY. Overview of thyroid disease in . UpToDate. 2016. Accessed on August 23, 2015. Performed By: #### TSH, FT4, T3 #### [facility] [address] [place], [place] [address] FREE T4 Collected: 12/24/2017 Status: F Source: [place] 4:32 PM [facility] REPOSITORY TYPE CODE TESTS RESULT OUT OF RANGE REFERENCE UNITS LAB FT4 0.9-1.7 ng/dL Free T4 1.1 Performed By: #### TSH, FT4, T3 #### [facility] [address] [place], [place] [address] T3 Collected: 12/24/2017 Status: F Source: [facility] 4:32 PM [place] [place] REPOSITORY TYPE CODE TESTS RESULT OUT OF RANGE REFERENCE UNITS LAB T3 79-165 ng/dL High T3 186 Performed By: #### TSH, FT4, T3 #### [facility] [address] [place], [place] [address] CBC AND DIFFERENTIAL Collected: 11/26/2017 Status: F Source: [place] 3:48 PM [facility] REPOSITORY TYPE CODE TESTS RESULT OUT OF REFERENCE UNITS RANGE LAB WBC 3.70-11.00 k/uL WBC 8.65 LAB RBC 3.90-5.20 m/uL RBC 3.97 LAB HGB 11.5-15.5 g/dL Hemoglobin 11.7 LAB HCT 36.0-46.0 % Hematocrit 36.7 LAB MCV 80.0-100.0 fL MCV 92.4 LAB MCH 26.0-34.0 pG MCH 29.5 LAB MCHC 30.5-36.0 g/dL MCHC 31.9 LAB RDWCV 11.5-15.0 % RDW-CV 12.8 LAB PLTCT 150-400 k/uL Platelet Count 234 LAB MPV 9.0-12.7 fL MPV 11.2 LAB ANEUT % Neut% 70.9 LAB AANEUT 1.45-7.50 k/uL Abs Neut 6.13 LAB ALYMP % Lymph% 22.7 LAB AALYMP 1.00-4.00 k/uL Abs Lymph 1.96 LAB AMONO % Denton% 5.3 LAB AAMONO <0.87 k/uL Abs [place]enton 0.46 LAB AEOS % Eosin% 0.8 LAB AAEOS <0.46 k/uL Abs Eosin 0.07 LAB ABASO % Baso% 0.3 LAB AABASO <0.11 k/uL Abs Baso 0.03 LAB AUNRBC 0 /100 WBC NRBCs 0.0 LAB ABNRBC <0.01 k/uL Absolute nRBC <0.01 LAB DTYP DTYPE Auto Diff Performed By: #### CBCDIF #### [facility] [address] [place] [id number] 50G, 1HR GEST. Collected: 11/26/2017 Status: F Source: [facility] 3:48 PM [facility] REPOSITORY TYPE CODE TESTS RESULT OUT OF REFERENCE UNITS RANGE LAB GLUP 74-134 mg/dL Glucose 118 Screen, Preg Result Comment: [place] Congress of Obstetricians and Gynecologists (Rose/Coustan) guidelines state a gestational diabetes mellitus positive screen is made, in women not previously diagnosed with overt diabetes, when the 1 hr plasma glucose level is equal to or above 140 mg/dL. The [facility] Scientific Specialist and [facility] recommends a 135 mg/dL cutoff. Performed By: #### GLTGST #### [facility] [address] [place] [id number] PROGRESS Observed: 11/26/2017 Status: COMPLETED Source: [place] 2:41 PM [facility] REPOSITORY O ID: [id number] Author: Dary Celis Ma Service: (none) Author Type: (none) Type: Progress Notes Filed: 11/26/2017 3:13 PM Note Text: 32 year old female here for INACTIVATED INFLUENZA VACCINE. 5668-0854 Season Patient is identified by name and date of : Yes [] CONTRAINDICATIONS color enhanced section Age less than 6 months? No Allergy to eggs, chicken, chicken feathers, or chicken dander? No Allergy to thimerosal (a preservative) or formaldehyde, gelatin? No History of severe reaction to any vaccine component or a previous dose of influenza vaccination? No History of Guillain-Unicoi Syndrome within 6 weeks after a previous influenza vaccine? No Patient is not moderately or severely ill? No Current temperature greater or equal to 100.4F? No History of Bone Marrow Transplant prior 6 months or solid organ transplant in the past 3 months ? No History of fainting after a prior injection or medical procedure? No- ? If patient has fainted in the past, the CDC recommends sitting or lying down for 15 minutes after the vaccination. [] VERIFICATION color enhanced section Was the answer Yes for any of the above contraindications? No contraindications present. Acceptable to proceed with vaccine. Patient/guardian agrees the above answers are true to the best of their knowledge? Yes Flu vaccine information sheet given? Yes See immunization activity in [facility] for details of immunizations adminstered today. Patient age: [age] year old For The 9837-1124 Flu Season 6-35 months old: Fluzone 0.25 ml - IM (Preservative Free) 3 years of age: Fluzone 0.5 ml - IM (Preservative Free) 3 years and older: Fluzone 0.5 ml- IM-(with Preservatives) 65+ years old: 2-49 years old Fluzone High-Dose 0.5 ml - IM (Preservative Free) FLUMIST- intranasal REMEMBER: If patient is less than 9 years of age and this is the first vaccine of Influenza to be received in any flu season, they should receive a second dose in one months time. Observed: 11/17/2017 Status: F Source: [place] BACT/CAND VAG GRM [facility] 10:30 AM [facility] [place] REPOSITORY Sp. Request/Comment: - Swab Smear Result - BACTERIAL VAGINOSIS RESULT: Stain results consistent with normal vaginal cassy. No Yeast observed Moderate Polymorphonuclear leukocytes Performed By: #### BVCNSM #### [facility] [address] [place], [place] [address] PROGRESS Observed: 10/08/2017 Status: COMPLETED Source: [place] 4:13 PM [facility] REPOSITORY HNO ID: [id number] Author: Scarlet Sidhu Service: (none) Author Type: Physician Type: Progress Notes Filed: 10/08/2017 4:13 PM Note Text: A fountain? fetus in utero with symmetric measurements Adequate growth (AGA). Estimated Date of Delivery: 02/24/18 EGA = 20w1d The anatomy appears normal. There are no evident malformations and /or effusions. No genetic markers are noted. The amniotic fluid volume is within normal limits. The sensitivity of ultrasound in the detection of malformations overall is approximately 35%. RECOMMENDATIONS: - Follow up ultrasound as clinically indicated SEQUENT SCRN SECOND Collected: 09/10/2017 Status: F Source: [place] [facility] PATIENTS ONLY 4:27 PM [facility] REPOSITORY TYPE CODE TESTS RESULT OUT OF REFERENCE UNITS RANGE LAB SE1PAP MoM 1.51 SE1 KAVITHA A LAB SE2AFP MoM 1.13 SE2 AFP LAB SE2HCG MoM 0.65 SE2 hCG LAB SE2UE3 MoM 1.33 SE2 Unconj uE3 LAB SE2INH MoM 0.71 SE2 Dimrc Inhibin A LAB SE1HCG MoM 0.72 SE1 hCG LAB SE2INT Screen Negative SE2 Interp Screen Negative LAB SE2SDN SE2 Scrn Rsk <1:05207 Dn Synd LAB SE2ADN 1:450 SE2 Age Rsk Dn Snyd LAB SE2STS SE2 Scr Rsk <1:03210 Trsmy 13 LAB SE2STR SE2 Scr Rsk <1:41380 Trsmy18 LAB SE2SON SE2 Scr Rsk 1:5900 ONTD LAB SE2RS View Seq Scrn results in Second Trim Scanned Documents link when available. LAB SEQLRV SEQ Staff Reviewed by Review Lennox Kohli MD, PhD ([id number]) Performed By: #### SEQL2 #### [facility] [address] [place] [address] FREE T3 Collected: 09/10/2017 Status: F Source: [place] 4:25 PM [facility] REPOSITORY TYPE CODE TESTS RESULT OUT OF RANGE REFERENCE UNITS LAB FREET3 2.3-4.1 pg/mL Free T3 2.9 Performed By: #### FREET3, FT4, TSH, MICRO #### [facility] [address] [place] [address] FREE T4 Collected: 09/10/2017 Status: F Source: [place] 4:25 PM [facility] REPOSITORY TYPE CODE TESTS RESULT OUT OF RANGE REFERENCE UNITS LAB FT4 0.9-1.7 ng/dL Free T4 1.0 Performed By: #### FREET3, FT4, TSH, MICRO #### [facility] [address] [place] [address] TSH Collected: 09/10/2017 Status: F Source: [place] 4:25 PM [facility] REPOSITORY TYPE CODE TESTS RESULT OUT OF RANGE REFERENCE UNITS LAB TSH 0.400-5.500 uU/mL Low TSH 0.298 Result Comment: If the patient is , TSH reference range varies by gestational period: First Trimester 0.100-2.500 uU/mL Second Trimester 0.200-3.000 uU/mL Third Trimester 0.300-3.000 uU/mL References: 1. Rodriguez, Regla M, Jerry CHINO, et al. Management of Thyroid Dysfunction during and : An Endocrine Society Clinical Practice Guideline. J Clin Endocrinol Metab, 2012:97:9491-1246. 2. Luther MCELROY. Overview of thyroid disease in . UpToDate. 2016. Accessed on August 23, 2015. Performed By: #### FREET3, FT4, TSH, MICRO #### [facility] [address] [place], [place] [address] TPO ANTIBODY Collected: 09/10/2017 Status: F Source: [place] 4:25 PM [facility] REPOSITORY TYPE CODE TESTS RESULT OUT OF REFERENCE UNITS RANGE LAB MICRO <5.6 IU/mL TPO Antibody <1.0 Performed By: #### FREET3, FT4, TSH, MICRO #### [facility] [address] [place], [place] [address] PROGRESS Observed: 08/19/2017 Status: COMPLETED Source: [place] 2:17 PM [facility] REPOSITORY HNO ID: [id number] Author: Ashia Oropeza Service: (none) Author Type: Physician Type: Progress Notes Filed: 08/23/2017 9:29 AM Note Text: Subjective: Renetta Lovell is a 31 year old female here for subclinical hyperthyroidism follow up. History in brief, subclinical hyperthyroidism was diagnosed in July 2016 TSH -0.32 (July 2016), 0.46 (august 2016), 0.277 (october 2016) TSH was recently checked by her Licensed Nursing Assistant and it was low (0.077) Patient is currently 12 This is her second General symptoms: Fatigue: this is new, feels tired all day long Weight change: weight gain of 10 lbs since Appetite change: increased Menstrual irregularities: currently Change in bowel habits: No Temperature intolerance: heat intolerance is unchanged Anxiety: No Tremor: Yes Palpitations: No REVIEW OF SYSTEMS: GENERAL: Fever - No Changes in weight - intentional weight loss NEUROLOGICAL: Numbness, tingling or sensation of pins and needles - No Headaches-no HEAD, EYES, EARS, NOSE, AND THROAT: Changes in hearing - No Changes in vision - No CARDIOVASCULAR: Chest pain or pressure - No Palpitations - No RESPIRATORY: Cough - No Wheezing - No Shortness of breath - No GASTROINTESTINAL: Abdominal discomfort - No Nausea - No Vomiting - No EXTREMITY: Edema (swelling) - No Claudication-no MUSCULOSKELETAL: Muscle pain or ache - No Skin: Rash - No Pruritus-No ENDOCRINE: Diabetes - No Thyroid disorder - see above PSYCHOLOGICAL: Depression - No ALLERGIES: ALLERGIES Allergen Reactions - Pseudoephedrine-Gua* Other: See Comments MEDICATIONS: Current Outpatient Prescriptions on File Prior to Visit: PNV95/FERROUS FUMARATE/FA ( ORAL) Take 1 tablet by mouth once daily. HYDROcodone-acetaminophen (NORCO) 5-325 mg per tablet Take 1-2 tablets by mouth every 4 hours as needed. SUCRALFATE ORAL Take 1 tablet by mouth as needed. polyethylene glycol 3350 (MIRALAX) 17 gram packet Take 17 g by mouth twice daily. MAGNESIUM ORAL Take 250 mg by mouth once daily. CALCIUM ORAL Take 1 tablet by mouth once daily. lansoprazole (PREVACID) 30 mg capsule Take 30 mg by mouth once daily. No current facility-administered medications on file prior to visit. PAST MEDICAL HISTORY: PAST MEDICAL HISTORY Diagnosis Date - Abnormal Pap smear of cervix ASCUS +HPV - Depression - GERD (gastroesophageal reflux disease) - Hiatal hernia - Migraines - Thyroid nodule PHYSICAL EXAM: BP 122/81 (BP Site: Left Arm, BP Position: Sitting, BP Cuff Size: Regular Adult) Pulse 93 Ht 166 cm (5' 5.35) Wt 97.5 kg (215 lb) LMP 05/20/2017 (Exact Date) SpO2 100% BMI 35.39 kg/m? Last 3 Encounter Wt Readings: Date: Wt: 12/28/2016 93.7 kg (206 lb 9.6 oz) 03/27/2016 97.9 kg (215 lb 14.4 oz) 03/17/2016 98.8 kg (217 lb 14.4 oz) Alert and oriented x3, no acute distress Eyes: Anicteric sclera.Extraocular motions intact, no exophthalmos, no lid lag Mucous membranes moist, no erythema Neck supple, no cervical lymphadenopathy Thyroid: slightly enlarged, soft, no palpable nodules Lungs: Breathing unlabored, clear to auscultation. No wheezing, rhonchi, rales Heart regular rate and rhythm, no murmer Abdomen:Normal abdominal sounds, non tender to palpation, no masses Neuro: Gait normal. Sensation grossly intact. Normal DTR's at patella, ,ild tremor Musculoskeletal: Muscular strength intact, No joint swelling, deformity, or tenderness Extremities without edema, Good peripheral pulses Skin: no rashes/ erythema, warm LAB: Ref. Range 12/28/2016 15:30 01/24/2017 13:09 03/27/2017 10:02 07/16/2017 16:07 08/13/2017 16:30 Free T4 Latest Ref Range: 0.9 - 1.7 ng/dL 1.2 1.3 1.2 TSH Latest Ref Range: 0.400 - 5.500 uU/mL 0.786 0.376 (L) 0.077 (L) TSI Latest Ref Range: <150 % Normal 51 Free T3 Latest Ref Range: 2.3 - 4.1 pg/mL 3.1 3.4 ASSESSMENT/PLAN: 1) Subclinical hyperthyroidism: 2) thyroid dysfunction in second trimester Her TSH was borderline low prior to TSH has reduced further, which is due to Free T4 is normal TSI was negative, which excludes Graves disease Check TSH along with free T3 in 4 weeks Also obtain TPO Ab I will send patient a message in my chart once the lab results become available Follow up to be determined accordingly. Ashia Oropeza MD 08/19/17 ARICOV Observed: 08/19/2017 Status: COMPLETED Source: [place] 2:05 PM [facility] REPOSITORY Office Visit (PATRICEMED) RENETTA LOVELL ([id number]) 1985 F Date Time Provider Department 08/19/17 2:05 PM ASHIA OROPEZA During your visit today, we recorded the following information about you: Pulse Blood pressure Weight Height 93/minute 122/81 97.5 kg 1.66 m Ashia Oropeza MD 08/23/2017 9:29 AM Signed Subjective: Renetta Lovell is a 31 year old female here for subclinical hyperthyroidism follow up. History in brief, subclinical hyperthyroidism was diagnosed in July 2016 TSH -0.32 (July 2016), 0.46 (august 2016), 0.277 (october 2016) TSH was recently checked by her Licensed Nursing Assistant and it was low (0.077) Patient is currently 12 This is her second General symptoms: Fatigue: this is new, feels tired all day long Weight change: weight gain of 10 lbs since Appetite change: increased Menstrual irregularities: currently Change in bowel habits: No Temperature intolerance: heat intolerance is unchanged Anxiety: No Tremor: Yes Palpitations: No REVIEW OF SYSTEMS: GENERAL: Fever - No Changes in weight - intentional weight loss NEUROLOGICAL: Numbness, tingling or sensation of pins and needles - No Headaches-no HEAD, EYES, EARS, NOSE, AND THROAT: Changes in hearing - No Changes in vision - No CARDIOVASCULAR: Chest pain or pressure - No Palpitations - No RESPIRATORY: Cough - No Wheezing - No Shortness of breath - No GASTROINTESTINAL: Abdominal discomfort - No Nausea - No Vomiting - No EXTREMITY: Edema (swelling) - No Claudication-no MUSCULOSKELETAL: Muscle pain or ache - No Skin: Rash - No Pruritus-No ENDOCRINE: Diabetes - No Thyroid disorder - see above PSYCHOLOGICAL: Depression - No ALLERGIES: ALLERGIES Allergen Reactions - Pseudoephedrine-Gua* Other: See Comments MEDICATIONS: Current Outpatient Prescriptions on File Prior to Visit: PNV95/FERROUS FUMARATE/FA ( ORAL) Take 1 tablet by mouth once daily. HYDROcodone-acetaminophen (NORCO) 5-325 mg per tablet Take 1-2 tablets by mouth every 4 hours as needed. SUCRALFATE ORAL Take 1 tablet by mouth as needed. polyethylene glycol 3350 (MIRALAX) 17 gram packet Take 17 g by mouth twice daily. MAGNESIUM ORAL Take 250 mg by mouth once daily. CALCIUM ORAL Take 1 tablet by mouth once daily. lansoprazole (PREVACID) 30 mg capsule Take 30 mg by mouth once daily. No current facility-administered medications on file prior to visit. PAST MEDICAL HISTORY: PAST MEDICAL HISTORY Diagnosis Date - Abnormal Pap smear of cervix ASCUS +HPV - Depression - GERD (gastroesophageal reflux disease) - Hiatal hernia - Migraines - Thyroid nodule PHYSICAL EXAM: BP 122/81 (BP Site: Left Arm, BP Position: Sitting, BP Cuff Size: Regular Adult) Pulse 93 Ht 166 cm (5' 5.35) Wt 97.5 kg (215 lb) LMP 05/20/2017 (Exact Date) SpO2 100% BMI 35.39 kg/m? Last 3 Encounter Wt Readings: Date: Wt: 12/28/2016 93.7 kg (206 lb 9.6 oz) 03/27/2016 97.9 kg (215 lb 14.4 oz) 03/17/2016 98.8 kg (217 lb 14.4 oz) Alert and oriented x3, no acute distress Eyes: Anicteric sclera.Extraocular motions intact, no exophthalmos, no lid lag Mucous membranes moist, no erythema Neck supple, no cervical lymphadenopathy Thyroid: slightly enlarged, soft, no palpable nodules Lungs: Breathing unlabored, clear to auscultation. No wheezing, rhonchi, rales Heart regular rate and rhythm, no murmer Abdomen:Normal abdominal sounds, non tender to palpation, no masses Neuro: Gait normal. Sensation grossly intact. Normal DTR's at patella, ,ild tremor Musculoskeletal: Muscular strength intact, No joint swelling, deformity, or tenderness Extremities without edema, Good peripheral pulses Skin: no rashes/ erythema, warm LAB: Ref. Range 12/28/2016 15:30 01/24/2017 13:09 03/27/2017 10:02 07/16/2017 16:07 08/13/2017 16:30 Free T4 Latest Ref Range: 0.9 - 1.7 ng/dL 1.2 1.3 1.2 TSH Latest Ref Range: 0.400 - 5.500 uU/mL 0.786 0.376 (L) 0.077 (L) TSI Latest Ref Range: <150 % Normal 51 Free T3 Latest Ref Range: 2.3 - 4.1 pg/mL 3.1 3.4 ASSESSMENT/PLAN: 1) Subclinical hyperthyroidism: 2) thyroid dysfunction in second trimester Her TSH was borderline low prior to TSH has reduced further, which is due to Free T4 is normal TSI was negative, which excludes Graves disease Check TSH along with free T3 in 4 weeks Also obtain TPO Ab I will send patient a message in my chart once the lab results become available Follow up to be determined accordingly. Ashia Oropeza MD 08/19/17 Ashia Oropeza MD 08/19/2017 2:34 PM Signed Get labs drawn in 3 weeks, after September 08 I will send you a message in my chart once the lab results become available Follow up to be determined based on the results Referring Provider: ANGELA LIMA ([facility]) [[id number]] Allergies As of Date: 08/19/2017 Noted Allergy Reaction PSEUDOEPHEDRINE-GUAIFENESIN 04/16/2017 14 - Other: See Comments Date Reviewed: 08/19/2017 Reviewed by: Monica Patel Ma - Fully Assessed Reason for Visit: Thyroid Problem [110] Primary Visit Diagnosis:Subclinical hyperthyroidism [E05.90] Other Visit Diagnosis:Thyroid dysfunction in in second trimester [O99.282, E07.9] Order(s):T3 FREE BLD [SQFREET3] Order #: [id number] FUTURE T4 FREE/FREE THYROX [SQFT4] Order #: [id number] FUTURE TSH BLD [SQTSH] Order #: [id number] FUTURE THYROID PEROXIDASE ANTIBODY BLOOD [SQMICRO] Order #: [id number] FUTURE Prescriptions as of 08/19/2017 Sig: VITAMIN D-3 ORAL Take 2,000 Units by mouth onc* LORATADINE 10 MG TABLET Take 10 mg by mouth once odell* ZANTAC ORAL Take by mouth. LACTOBACILLUS ACIDOPHILUS 10 * Take by mouth once daily. ORAL Take 1 tablet by mouth once d* POLYETHYLENE GLYCOL 3350 17 G* Take 17 g by mouth twice odell* Problem List As Of Date 08/19/2017 Noted Resolved Biliary dyskinesia [K82.8] INVALID FOR* GERD (gastroesophageal reflux disease) [K21.9] Depression [F32.9] Hiatal hernia [K44.9] Migraines [G43.909] Subclinical hyperthyroidism [E05.90] INVALID FOR* Current with history of spontaneous a*INVALID FOR* More... History of depression [Z86.59] INVALID FOR* More... Obesity in [O99.210] INVALID FOR* More... History of goiter [Z86.39] INVALID FOR* More... Other instructions from your clinician: Get labs drawn in 3 weeks, after September 08 I will send you a message in my chart once the lab results become available Follow up to be determined based on the results Encounter Status:Closed by ASHIA OROPEZA DO on 08/23/17 PROGRESS Observed: 08/17/2017 Status: COMPLETED Source: [place] 11:50 AM [facility] [place] REPOSITORY O ID: [id number] Author: Carrington Brumfield Service: (none) Author Type: Physician Type: Progress Notes Filed: 08/17/2017 11:52 AM Note Text: Please see ultrasound report for details of this visit. Carrington Brumfield M.D. FREE T4 Collected: 08/13/2017 Status: F Source: [place] 4:30 PM [facility] [place] REPOSITORY TYPE CODE TESTS RESULT OUT OF RANGE REFERENCE UNITS LAB FT4 0.9-1.7 ng/dL Free T4 1.2 Performed By: #### FT4, TSH, SEQL1 #### [facility] [address] [place], [place] [address] TSH Collected: 08/13/2017 Status: F Source: [place] 4:30 PM [facility] [place] REPOSITORY TYPE CODE TESTS RESULT OUT OF RANGE REFERENCE UNITS LAB TSH 0.400-5.500 uU/mL Low TSH 0.077 Result Comment: If the patient is , TSH reference range varies by gestational period: First Trimester 0.100-2.500 uU/mL Second Trimester 0.200-3.000 uU/mL Third Trimester 0.300-3.000 uU/mL References: 1. Corral L, Regla M, Jerry CHINO, et al. Management of Thyroid Dysfunction during and : An Endocrine Society Clinical Practice Guideline. J Clin Endocrinol Metab, 2012:97:1205-5768. 2. Luther MCELROY. Overview of thyroid disease in . UpToDate. 2016. Accessed on August 23, 2015. Performed By: #### FT4, TSH, SEQL1 #### [facility] [address] [place], [place] [address] SEQUENT SCRN FIRST Collected: 08/13/2017 Status: F Source: [place] [facility] PATIENTS ONLY 4:30 PM [facility] [place] REPOSITORY TYPE CODE TESTS RESULT OUT OF REFERENCE UNITS RANGE LAB SE1PAP MoM 1.49 SE1 KAVITHA A LAB SE1HCG MoM 0.71 SE1 hCG LAB SE1INT Final result pending second Final trimester SE1 result pending sample Interp second trimester sample LAB SE1SDN SE1 Scrn <1:67196 Rsk Dn Synd LAB SE1ADN 1:330 SE1 Age Rsk Dn Synd LAB SE1STR SE1 Scr <1:84868 Rsk Trsmy18 LAB SE1ATR SE1 Age 1:1500 Rsk Trsmy18 LAB SE1RS View Seq Scrn results in First Trim Scanned Documents link when available. LAB SEQLRV SEQ Staff Reviewed by Review Lennox Kohli MD, PhD ([id number]) Performed By: #### FT4, TSH, SEQL1 #### [facility] [address] [place], [place] [address] Observed: 07/16/2017 Status: F Source: [place] URINE CULTURE 5:25 PM [facility] REPOSITORY Sp. Request/Comment: - Best Practice Alert: To ensure optimal transport conditions and accurate culture results transfer urine specimens to flores top C and S preservative tube. Culture Result - 10,000 - <50,000 CFU/ml Normal urogenital cassy Performed By: #### URCUL #### [facility] [address] [place], [place] [address] TOXICOLOGY SCREEN,UR Collected: 07/16/2017 Status: F Source: [place] 5:24 PM [facility] REPOSITORY TYPE CODE TESTS RESULT OUT OF REFERENCE UNITS RANGE LAB UPCP2 Negative Negative Phencyclidin e, Urine Result Comment: Cutoff threshold at 25 ng/mL. LAB UBENZ2 Negative Benzodiazepines, Ur Negative Result Comment: Cutoff threshold at 200 ng/mL. LAB UCOC2 Negative Cocaine, Negative Urine Result Comment: Cutoff threshold at 300 ng/mL. LAB UAMPH2 Negative Amphetamines, Urine Negative Result Comment: Cutoff threshold at 1000 ng/mL. LAB UTHC2 Negative Cannabinoids, Urine Negative Result Comment: Cutoff threshold at 50 ng/mL. LAB UOPI2 Negative Opiates, Negative Urine Result Comment: Cutoff threshold at 300 ng/mL. LAB UBARB2 Negative Barbiturates, Urine Negative Result Comment: Cutoff threshold at 200 ng/mL. LAB UETOH <11 mg/dL <11 Ethanol, Urine LAB UOXYC Negative Oxycodone, Negative Urine Result Comment: Cutoff threshold at 100 ng/mL. Comment: Immunoassay screen only. Cross reactivity with other substances can occur with immunoassay screening. Detection of any drug(s) in this urine toxicology panel is presumptive only. These tests are for med ical purposes only and should not be used for compliance monitoring, legal, or forensic use. In clinical settings, confirmatory testing is at the practitioner's discretion [1]. If clinically indicated, confirmation by high specificity, quantitative methodology may be requested on the same speci men through Client Services ([phone]) if contacted within 48 hours of initial testing. [1]Substance Abuse and Mental Health Services Administration (2012). Clinical Drug Testing in Primary Care Technical Assistance Publication Series 32. [facility] and Human Services, [place], p.10. These tests were developed and their performance characteristics determined by [facility]'s [facility] ([facility]). They have not been cleared or a pproved by the FDA. [facility] is regulated under CLIA as qualified to perform high complexity testing. These tests are used for clinical purposes. They should not be regarded as investigational or for research. Performed By: #### UTOX2 #### [facility] [address] [place], [place] [address] CBC Collected: 07/16/2017 Status: F Source: [facility] 4:07 PM [facility] REPOSITORY TYPE CODE TESTS RESULT OUT OF REFERENCE UNITS RANGE LAB WBC 3.70-11.00 k/uL WBC 7.95 LAB RBC 3.90-5.20 m/uL RBC 4.74 LAB HGB 11.5-15.5 g/dL Hemoglobin 13.5 LAB HCT 36.0-46.0 % Hematocrit 41.4 LAB MCV 80.0-100.0 fL MCV 87.3 LAB MCH 26.0-34.0 pG MCH 28.5 LAB MCHC 30.5-36.0 g/dL MCHC 32.6 LAB RDWCV 11.5-15.0 % RDW-CV 12.9 LAB PLTCT 150-400 k/uL Platelet Count 238 LAB MPV 9.0-12.7 fL MPV 11.7 LAB ABSNUC <0.01 k/uL Absolute nRBC <0.01 Performed By: #### CBC, SYPHGX, HBSAG, HIV12C, RUBIGG #### [place] [id number] [place], [place] [address] SYPHILIS IGG WITH Collected: 07/16/2017 Status: F Source: [facility] 4:07 PM [facility] REPOSITORY TYPE CODE TESTS RESULT OUT OF REFERENCE UNITS RANGE LAB SYPHQL Nonreactive Syphilis IgG, Nonreactive Qual Result Comment: In conjunction with this result, the immune status of the patient should be evaluated based on their clinical status, related risk factors, and other diagnostic test results. LAB SYPHLG AI Syphilis IgG <0.2 Result Comment: Antibody index is interpreted as follows: Non reactive SPECIMENS <=0.8 Weak reactive SPECIMENS 0.9 to 5.9 Reactive SPECIMENS >=6.0 Performed By: #### CBC, SYPHGX, HBSAG, HIV12C, RUBIGG #### [place] [address] HEPATITIS B SURF. AG Collected: 07/16/2017 Status: F Source: [place] 4:[address] [place] [address] REPOSITORY TYPE CODE TESTS RESULT OUT OF REFERENCE UNITS RANGE LAB HBSAG Negative Hepatitis B Negative Surf. Ag Performed By: #### CBC, SYPHGX, HBSAG, HIV12C, RUBIGG #### [place] [phone] HIV 12 COMBO (AG/AB) Collected: 07/16/2017 Status: F Source: [place] 4:[address] [place] [address] REPOSITORY TYPE CODE TESTS RESULT OUT OF REFERENCE UNITS RANGE LAB HVAGAB Non Reactive HIV Non Reactive 12 Ag/Ab Result Comment: (NOTE) HIV Information: [place] Rev. Code 3701.243(E): This information has been disclosed to you from confidential records protected from disclosure by state law. You shall make no further disclosure of this information without the specific, written, and informed release of the individual to whom it pertains, or as otherwise permitted by state law. A general authorization for the release of medical or other information is not sufficient for the purpose of the release of HIV test results or diagnoses. Performed By: #### CBC, SYPHGX, HBSAG, HIV12C, RUBIGG #### [place] [phone] RUBELLA IGG ANTIBODY Collected: 07/16/2017 Status: F Source: [place] [address] [place] [address] REPOSITORY TYPE CODE TESTS RESULT OUT OF RANGE REFERENCE UNITS LAB RUBGQL Negative Abnormal Rubella IgG Positive Alert Ab, Qual Result Comment: Sample is considered positive for IgG antibodies to rubella virus. A positive result indicates previous exposure to Rubella virus or vaccination. LAB RUBQNT Index Value Rubella IgG Ab 1.18 Result Comment: Index values are interpreted as follows: Negative specimens <0.90 Equivocol specimens 0.90 to 0.99 Positive specimens >0.99 The magnitude of the measured result is not indicative of the amount of antibody present. Performed By: #### CBC, SYPHGX, HBSAG, HIV12C, RUBIGG #### [facility] [address] [place] [address] 50G, 1HR GEST. Collected: 07/16/2017 Status: F Source: [place] [facility] 4:07 PM [facility] REPOSITORY TYPE CODE TESTS RESULT OUT OF REFERENCE UNITS RANGE LAB GLUP 74-134 mg/dL Low Glucose 73 Screen, Preg Result Comment: [place] [employer] of Obstetricians and Gynecologists (Rose/Coustan) guidelines state a gestational diabetes mellitus positive screen is made, in women not previously diagnosed with overt diabetes, when the 1 hr plasma glucose level is equal to or above 140 mg/dL. The [facility] Scientific Specialist and [facility] recommends a 135 mg/dL cutoff. Performed By: #### GLTGST #### [place] [address] TYPE AND SCR,PRENATL Collected: 07/16/2017 Status: F Source: [place] 4:07 PM [facility] REPOSITORY TYPE CODE TESTS RESULT OUT OF REFERENCE UNITS RANGE LAB %ABR ABO/RH(D) AB POSTIVE LAB % Antibody NEG Screen Performed By: #### TSPN #### [place] [id number] [place] [address] HPV W/GENOTYPE Collected: 07/16/2017 Status: F Source: [place] 3:24 PM [facility] REPOSITORY TYPE CODE TESTS RESULT OUT OF REFERENCE UNITS RANGE LAB HPVT16 HPV HighRisk Negative for Type 16 HPV DNA high risk type 16 by PCR. LAB HPVT18 HPV HighRisk Negative for Type 18 HPV DNA high risk type 18 by PCR. LAB HPVHRO HPV HighRisk Negative for Other HPV DNA high risk types: 31,33,35,39,45 ,51,52,56,58,5 9,66,68 by PCR. Result Comment: This test was developed and its performance characteristics determined by [facility]'s [facility] ([facility]). It has not been cleared or approved by the FDA. [facility] is regulated under CLIA as qualified to perform high-complexity testing. This test is used for clinical purposes. It should not be regarded as inv estigational or for research. Performed By: #### HPVHRR #### [facility] [address] [place], [place] [address] CYTOLOGY Observed: 07/16/2017 Status: C Source: [facility] 3:24 PM [facility] REPOSITORY ADDITIONAL PROCEDURES PRESENT Specimen originated from [facility] Specimen #: [id number] Submitting Physician: HEIDI ANAYA MD SPECIMEN SUBMITTED A: CERVICAL, SCREENING, FLUID FINAL DIAGNOSIS A. CERVICAL, SCREENING, FLUID Satisfactory for interpretation. Negative for intraepithelial lesion or malignancy. This specimen has been analyzed by the ThinPrep Imaging System, an automated imaging and review system, which assists the laboratory in evaluating cells on ThinPrep Pap tests. Following automated imaging, selected peters from every slide are reviewed by a civil engineering assistant. JOEY Clayton(ASCP) (Electronic Signature) ADDITIONAL PROCEDURE(S) HUMAN PAPILLOMA VIRUS Date Ordered: 07/19/2017 Date Reported: 07/20/2017 Procedure Results and Interpretation Negative for HPV DNA high risk type 16 by PCR. Negative for HPV DNA high risk type 18 by PCR. Negative for HPV DNA high risk types: 31,33,35,39,45,51,52,56,58,59,66,68 by PCR. This test was developed and its performance characteristics determined by [facility]'s [facility] ([facility]). It has not been cleared or approved by the FDA. [facility] is regulated under CLIA as qualified to perform high-complexity testing. This test is used for clinical purposes. It should not be regarded as investigational or for research. CLINICAL DATA ROUTINE EXAM, HPV Testing: Yes, automatic HPV patients over 30 Date of Last Menstrual Period: 05/20/2017 Menstrual History: STAINS A: CERVICAL, SCREENING, FLUID THIN PREP MANAGED CARE PROVIDER Lorraine Lane M.D., Billet Worker Date of Report: 07/23/2017 Date of Procedure: 07/16/2017 Date of Receipt: 07/19/2017 Submitted by: HEIDI ANAYA MD Location: [facility] Diagnostic interpretation performed at [facility], [address] [place] [address]. The Pap Smear is a screening test for cervical cancer. False negative results occur with all screening tests, emphasizing the need for rescreening at recommended intervals, and clinical correlation. GC/CHLAMYDIA AMPLIF Collected: 07/16/2017 Status: F Source: [place] 3:10 PM [facility] REPOSITORY TYPE CODE TESTS RESULT OUT OF REFERENCE UNITS RANGE LAB GCCTSR GC/Chlam Amp Cervix Source LAB GCAMPL GC Negative Amplification for Neisseria gonorrhoeae by amplification. LAB CLAMPL Chlamydia Negative Amplif for Chlamydia trachomatis by amplification. Performed By: #### GCCT #### [facility] [address] [place] [address] PROGRESS Observed: 07/16/2017 Status: COMPLETED Source: [facility] 2:59 PM [facility] REPOSITORY HNO ID: [id number] Author: Heidi Garcia Service: (none) Author Type: Physician Type: Progress Notes Filed: 07/16/2017 3:26 PM Note Text: INITIAL OB ASSESSMENT OB Provider: Heidi Anaya MD HPI: Renetta Lovell is a 31 year old female here to establish Obstetrical Care. Patient's last menstrual period was 05/20/2017 (exact date). from OB Dating Form. Cycle length: 30 days Complaints: nausea without vomiting was planned. Obstetric History T0 L0 SAB1 TAB0 Ectopic0 Multiple0 Live Births0 Prior : never History of 4th degree laceration: No Patient's Risk Screening for delivery: History of abnormal pap: No, +HPV Prior treatment for cervical dysplasia: none. History of STDs: HPV Tobacco use: No Caffeine use: No Drug use: No Alcohol use: No Multivitamin with Folic acid: Yes Occupation: [employer] heritage: No Would refuse blood transfusion if medically necessary: No No weight on file for this encounter. Patient BMI over 30? Yes, Consult to [facility] ordered Marital Status: Partner: Name: Ger Lovell Age: 29 Occupation: [employer] Gender: male History of STDs: None PAST MEDICAL HISTORY Diagnosis Date - Abnormal Pap smear of cervix ASCUS +HPV - Depression - GERD (gastroesophageal reflux disease) - Hiatal hernia - Migraines - Thyroid nodule PAST SURGICAL HISTORY Procedure Laterality Date - CHOLECYSTECTOMY HX 04/06/2016 - COLONOSCOPY - EGD Hiatal Hernia Current Outpatient Prescriptions on File Prior to Visit: Lactobacillus acidophilus (PROBIOTIC) 10 billion cell cap Take by mouth once daily. polyethylene glycol 3350 (MIRALAX) 17 gram packet Take 17 g by mouth twice daily. PNV95/FERROUS FUMARATE/FA ( ORAL) Take 1 tablet by mouth once daily. No current facility-administered medications on file prior to visit. Review of Systems: GENERAL: Negative for: Fever or Chills HEENT: Negative for: Headache, Impaired Vision, Ringing in Ears, Nosebleeds NECK: Negative for: Swelling, Pain, Stiffness RESPIRATORY: Negative for: Cough, Shortness of breath, Wheezing GASTROINTESTINAL: Negative for: Heartburn, Constipation, Diarrhea, Blood in stool, Vomiting MUSCULOSKELETAL: Negative for: Muscle or joint pain, stiffness, Joint swelling NEUROLOGIC/PSYCHIATRIC: Negative for: Weakness, Paralysis, Numbness, Tingling, Tremor, Anxiety, Depression, Memory loss SKIN: Negative for: Rash, Itching GENITOURINARY: Negative for: vaginal itching, vaginal discharge, hematuria or dysuria PHYSICAL EXAM: LMP 05/20/2017 GENERAL: pleasant female in no apparent distress DERMATOLOGY: Normal, without lesions, non-icteric and non-hirsute NECK: Supple, full range of motion, no adenopathy and thyroid normal CHEST: Normal inspiratory effort BREAST: soft, non-tender, symmetric, no dominant mass, normal nipple-areolar complex, no lymphadenopathy and no nipple discharge ABDOMEN: soft, non-tender and no masses NEURO: alert and oriented x3,exam grossly non-focal PELVIS: External genitalia normal without lesions. Perineal body intact. No vaginal or cervical lesions. Cervix closed. Uterus 8 week size. No adnexal masses or tenderness. Clinical Pelvimetry: Pelvimetry clinically assessed as adequate Limited OB ultrasound exam: single intrauterine and positive cardiac activity ASSESSMENT: 31 year old at 8.1 wks gestational age PLAN: 1) Patient oriented to practice. Discussed nutrition, folic acid supplementation, dietary guidelines, exercise, smoking, alcohol, caffeine, and drug use. Discussed routine OB labs including STD/HIV. Discussed aneuploidy screening options including serum screening and nuchal translucency. 2) nausea in reviewed- VIT B6 and unisom 3) pap and hpv today Follow up in 4 weeks or sooner prn. Heidi Villa MD CNNURSE Observed: 07/06/2017 Status: COMPLETED Source: [place] 3:30 PM [facility] REPOSITORY Nurse Visit (WOOB) RENETTA LOVELL ([id number]) 1985 F Date Time Provider Department 07/06/17 3:30 PM NURSE PNOB [facility] W[facility] WOOB During your visit today, we recorded the following information about you: Last Period 05/20/17 Chivo Martinez RN 07/06/2017 4:14 PM Signed SEQUENTIAL SCREENINGS The [facility] offers sequential screenings for women who are interested in screenings for chromosomal abnormalities and certain defects during a . The sequential screen combines ultrasound and blood tests to determine the risk of chromosomal abnormalities, including Down's Syndrome (Trisomy 21) and Trisomy 18, as well as open neural tube defects including spina bifida. Ultrasound examination is performed between 11 weeks and 13 weeks gestational age. Blood tests are drawn after the ultrasound and again later in the between 15 and 21 weeks gestational age. Please let your physician know if you are interested in this testing. It will require an appointment with our outboard technician. This is not an ultrasound performed by a physician in our office during a routine visit. SIGNS AND SYMPTOMS OF LABOR 1. Contractions every 10 minutes or more often 2. Clear, pink, or brownish fluid (water) leaking from vagina 3. Feeling that baby is pushing down, pressure 4. Low, dull backache 5. Cramps that feel like a period 6. Cramps with or without diarrhea If you notice any of the above symptoms, contact our office at [phone] and ask to speak with a nurse. After hours, you can call doctors registry at [phone] OR call [facility] at [phone] and ask to have the doctor railroad design consultant paged. If you consider this an emergency, dial 9-1-1 or go to your nearest emergency department. Cord-Blood Banking Up until recently, the umbilical cord--along with the blood that remained in it after a baby was born and the cord cut--was simply discarded by the hospital. Then, in the late 1980s, researchers discovered that cord blood possessed unusual properties that made it useful in the treatment of patients with some cancers and other illnesses. While the actual process of collecting cord blood is straightforward, many parents are not even aware that this option now exists, much less familiar with all the issues involved. The case for saving your baby's cord blood The blood running back and forth between your baby and the placenta is full of immature cells called stem cells. Unlike embryonic stem cells, which have the ability to develop into any type of body cell, cord-blood stem cells already are locked into a certain, vital function: making all the different components of the blood, such as platelets, white blood cells, and red blood cells-serving, in effect, like bone marrow. When transfused into a patient whose own blood cells have faulty genetic coding or have been destroyed by chemotherapy or other cancer treatments, the cord-blood cells can implant themselves in the bone marrow and generate legions of new, healthy cells. These days, cord-blood transplants most commonly are used in cancer patients when a donor can't be found for a bone-marrow transplant. The treatment is particularly effective in young patients-the [facility] Cord Blood Bank reports a 70 percent success rate in children, but only 20 to 40 percent in adults. Researchers envision improving those odds and see many future applications as well, such as curing sickle cell disease and other blood-related genetic illnesses. So there is a possibility that your child, or someone else, may need these super-healthy and versatile cells one day. The drawbacks Aside from not knowing about this medical option, the main reason most people do not save their baby's stem cells is cost. In a private blood bank, the initial costs run from $275 to $1,500. Most also charge a yearly storage fee of $50 to $95. The advantage of using a private bank is that your sample is saved for only you to use. An alternative to private banking Public cord-blood moscoso are an alternative. These cost no money to use, but your sample is not specifically saved for you. Another person with a more immediate need may use it. If the time should come that you need stem cells, yours may still be available, or you may use donations from other people without charge. You also can direct your sample to go to a relative with an immediate need if the blood type matches. Anyone else needing to use stem cells from a public bank who has not been a donor must pay for it, sometimes tens of thousands of dollars. Will my family benefit from saving stem cells? Right now, situations in which stem cells would be helpful are quite rare. As mentioned earlier, stem-cell transplants are most commonly used for rare genetic conditions and for some types of cancer, including leukemia and lymphoma. And even with these present uses, many questions remain. In cancer treatment, for example, some researchers are concerned about the wisdom of transplanting back into the child the same cells that already showed a propensity to become malignant. Doctors also aren't sure if the number of cells taken at the time of would be enough to treat a full-grown 16-year-old. It is also not completely clear how active the cells would be after years of being stored. The treatment is so new and rare, we just don't have the data yet to resolve these important issues. What do the experts say? The [place] [employer] encourages philanthropic blood banking in public moscoso, but only for families with a current or potential need. Blood-bank proponents encourage any kind of banking, pointing out that research is getting closer and closer to many diverse, live-saving applications. How do I decide? Each family must weigh the pros and cons for themselves. Some families say that any cost is worth their peace of mind. Others say that in the face of uncertainty about the effectiveness of the treatment, they will use their resources elsewhere. Some choose the middle ground of donating publicly, knowing that their sample might benefit another family, if not themselves. For more information, ask your doctor or nurse, and be sure to check out our article on the technical aspects of cord-blood banking. Technical Aspects of Cord-Blood Banking If you are interested in storing your baby's umbilical-cord blood because of its possible use in emerging medical treatments, you must make arrangements with a blood bank before your child is born. The collection procedure is quite simple: After delivery of the baby, the umbilical cord is clamped and cut in the usual way. The blood that remains in the umbilical-cord vessels is then collected in sterile containers. The blood may be removed from the cord with a large needle or allowed to flow freely, depending on the company's collection system. The containers may look like large test tubes or like the plastic bags used in a blood bank. It does not cause the mother or the baby any pain to collect the blood, and no blood is taken that the baby needs at the moment. The nurse, plastics engineer, or physician will then label the samples, check them over with you, and package them for a special pickup arranged with a commercial carrier. When the blood arrives at the blood-bank facility, it is processed and the parents are notified. It is then kept in an advanced storage system for years. How do I know that my sample is safe? Power outages and bankruptcies potentially could threaten any organization, but so far none have been reported. It is to be hoped that the scientists in these moscoso would arrange for safe transfer to another facility if the need arose. YOU MUST MAKE ARRANGEMENTS AHEAD OF TIME! Public cord-blood moscoso--DONATION: [employer] [phone] [facility]'s Placental Blood Program, [facility] Umbilical Cord Blood Bank, Private cord-blood moscoso--SAVING FOR YOUR OWN USE: [employer], (I think this is the least expensive) [employer] [phone] [employer], [phone]) [employer] Cord Blood [facility], [phone], [phone] [place] [facility], Cord Blood Registry, ([phone]) [employer], An Internet search may provide you with additional listings. Referring Provider: SELF [200] Allergies As of Date: 07/06/2017 Noted Allergy Reaction PSEUDOEPHEDRINE-GUAIFENESIN 04/16/2017 14 - Other: See Comments Date Reviewed: 07/06/2017 Reviewed by: Chivo Martinez RN - Fully Assessed Reason for Visit: Care [86] Cmt: Pre-New OB Primary Visit Diagnosis:Current with history of spontaneous during prior [O09.299] Other Visit Diagnoses:History of depression [Z86.59] Obesity in [O99.210] History of goiter [Z86.39] Order(s):[facility] PT ED BOX BRANDER [] Order #: [id number]: 1 FUTURE SRINATH PT ED ANESTHESIA [[id number]] Order #: [id number]: 1 FUTURE [facility] PT ED BOX BRANDER [] Order #: [id number]: 1 FUTURE SRINATH WHAT TO EXPECT DURING YOUR HOSPITAL STAY [] Order #: [id number]: 1 FUTURE [facility] PT ED BOX BRANDER [] Order #: [id number]: 1 FUTURE [facility]INATH PT ED BOX BRANDER [] Order #: [id number]: 1 FUTURE [facility]IN[facility] PT ED BOX BRANDER [] Order #: [id number]: 1 FUTURE [facility] PT ED BOX BRANDER [] Order #: [id number]. #:[id number]: 1 SRINATH PT ED ANESTHESIA [[id number]] Order #: [id number]. #:[id number]: 1 SRINATH PT ED BOX BRANDER [] Order #: [id number]. #:[id number]: 1 SRINATH WHAT TO EXPECT DURING YOUR HOSPITAL STAY [] Order #: [id number]. #:[id number]: 1 SRIN[facility] PT ED BOX BRANDER [] Order #: [id number]. #:[id number]: 1 SRINATH PT ED BOX BRANDER [] Order #: [id number]. #:[id number]: 1 SRIN[facility] PT ED BOX BRANDER [] Order #: [id number]. #:[id number]: 1 Prescriptions as of 07/06/2017 Sig: ORAL Take 1 tablet by mouth once d* LACTOBACILLUS ACIDOPHILUS 10 * Take by mouth once daily. POLYETHYLENE GLYCOL 3350 17 G* Take 17 g by mouth twice odell* Problem List As Of Date 07/06/2017 Noted Resolved Biliary dyskinesia [K82.8] INVALID FOR* GERD (gastroesophageal reflux disease) [K21.9] Depression [F32.9] Hiatal hernia [K44.9] Migraines [G43.909] Subclinical hyperthyroidism [E05.90] INVALID FOR* Current with history of spontaneous a*INVALID FOR* More... History of depression [Z86.59] INVALID FOR* More... Obesity in [O99.210] INVALID FOR* More... History of goiter [Z86.39] INVALID FOR* More... Other instructions from your clinician: SEQUENTIAL SCREENINGS The [facility] offers sequential screenings for women who are interested in screenings for chromosomal abnormalities and certain defects during a . The sequential screen combines ultrasound and blood tests to determine the risk of chromosomal abnormalities, including Down's Syndrome (Trisomy 21) and Trisomy 18, as well as open neural tube defects including spina bifida. Ultrasound examination is performed between 11 weeks and 13 weeks gestational age. Blood tests are drawn after the ultrasound and again later in the between 15 and 21 weeks gestational age. Please let your physician know if you are interested in this testing. It will require an appointment with our outboard technician. This is not an ultrasound performed by a physician in our office during a routine visit. SIGNS AND SYMPTOMS OF LABOR 1. Contractions every 10 minutes or more often 2. Clear, pink, or brownish fluid (water) leaking from vagina 3. Feeling that baby is pushing down, pressure 4. Low, dull backache 5. Cramps that feel like a period 6. Cramps with or without diarrhea If you notice any of the above symptoms, contact our office at [phone] and ask to speak with a nurse. After hours, you can call [facility] at [phone] OR call [facility] at [phone] and ask to have the doctor railroad design consultant paged. If you consider this an emergency, dial [phone]--1 or go to your nearest emergency department. Cord-Blood Banking Up until recently, the umbilical cord--along with the blood that remained in it after a baby was born and the cord cut--was simply discarded by the hospital. Then, in the late , researchers discovered that cord blood possessed unusual properties that made it useful in the treatment of patients with some cancers and other illnesses. While the actual process of collecting cord blood is straightforward, many parents are not even aware that this option now exists, much less familiar with all the issues involved. The case for saving your baby's cord blood The blood running back and forth between your baby and the placenta is full of immature cells called stem cells. Unlike embryonic stem cells, which have the ability to develop into any type of body cell, cord-blood stem cells already are locked into a certain, vital function: making all the different components of the blood, such as platelets, white blood cells, and red blood cells-serving, in effect, like bone marrow. When transfused into a patient whose own blood cells have faulty genetic coding or have been destroyed by chemotherapy or other cancer treatments, the cord-blood cells can implant themselves in the bone marrow and generate legions of new, healthy cells. These days, cord-blood transplants most commonly are used in cancer patients when a donor can't be found for a bone-marrow transplant. The treatment is particularly effective in young patients- the [facility] Cord Blood Bank reports a 70 percent success rate in children, but only 20 to 40 percent in adults. Researchers envision improving those odds and see many future applications as well, such as curing sickle cell disease and other blood-related genetic illnesses. So there is a possibility that your child, or someone else, may need these super-healthy and versatile cells one day. The drawbacks Aside from not knowing about this medical option, the main reason most people do not save their baby's stem cells is cost. In a private blood bank, the initial costs run from $275 to $1,500. Most also charge a yearly storage fee of $50 to $95. The advantage of using a private bank is that your sample is saved for only you to use. An alternative to private banking Public cord-blood moscoso are an alternative. These cost no money to use, but your sample is not specifically saved for you. Another person with a more immediate need may use it. If the time should come that you need stem cells, yours may still be available, or you may use donations from other people without charge. You also can direct your sample to go to a relative with an immediate need if the blood type matches. Anyone else needing to use stem cells from a public bank who has not been a donor must pay for it, sometimes tens of thousands of dollars. Will my family benefit from saving stem cells? Right now, situations in which stem cells would be helpful are quite rare. As mentioned earlier, stem-cell transplants are most commonly used for rare genetic conditions and for some types of cancer, including leukemia and lymphoma. And even with these present uses, many questions remain. In cancer treatment, for example, some researchers are concerned about the wisdom of transplanting back into the child the same cells that already showed a propensity to become malignant. Doctors also aren't sure if the number of cells taken at the time of would be enough to treat a full-grown 16-year-old. It is also not completely clear how active the cells would be after years of being stored. The treatment is so new and rare, we just don't have the data yet to resolve these important issues. What do the experts say? The [place] [employer] encourages philanthropic blood banking in public moscoso, but only for families with a current or potential need. Blood-bank proponents encourage any kind of banking, pointing out that research is getting closer and closer to many diverse, live-saving applications. How do I decide? Each family must weigh the pros and cons for themselves. Some families say that any cost is worth their peace of mind. Others say that in the face of uncertainty about the effectiveness of the treatment, they will use their resources elsewhere. Some choose the middle ground of donating publicly, knowing that their sample might benefit another family, if not themselves. For more information, ask your doctor or nurse, and be sure to check out our article on the technical aspects of cord-blood banking. Technical Aspects of Cord-Blood Banking If you are interested in storing your baby's umbilical- cord blood because of its possible use in emerging medical treatments, you must make arrangements with a blood bank before your child is born. The collection procedure is quite simple: After delivery of the baby, the umbilical cord is clamped and cut in the usual way. The blood that remains in the umbilical-cord vessels is then collected in sterile containers. The blood may be removed from the cord with a large needle or allowed to flow freely, depending on the company's collection system. The containers may look like large test tubes or like the plastic bags used in a blood bank. It does not cause the mother or the baby any pain to collect the blood, and no blood is taken that the baby needs at the moment. The nurse, plastics engineer, or physician will then label the samples, check them over with you, and package them for a special pickup arranged with a commercial carrier. When the blood arrives at the blood- bank facility, it is processed and the parents are notified. It is then kept in an advanced storage system for years. How do I know that my sample is safe? Power outages and bankruptcies potentially could threaten any organization, but so far none have been reported. It is to be hoped that the scientists in these moscoso would arrange for safe transfer to another facility if the need arose. YOU MUST MAKE ARRANGEMENTS AHEAD OF TIME! Public cord-blood moscoso--DONATION: [employer] [phone] [facility] Placental Blood Program, [facility] Umbilical Cord Blood Bank, Private cord-blood moscoso--SAVING FOR YOUR OWN USE: [employer], (I think this is the least expensive) [employer] [phone] [employer], (333) [employer] [facility], [phone], [phone] [place] [facility], Cord Blood [facility], (267) [employer], An Internet search may provide you with additional listings. Disposition: Return in 10 days (on 07/16/2017) for New OB with Dr Anaya. Follow-up and Disposition History Recorded Encounter Status:Closed by CHIVO MARTINEZ RN on 07/06/17 PROGRESS Observed: 06/23/2017 Status: COMPLETED Source: [place] 2:05 PM [facility] REPOSITORY HNO ID: [id number] Author: Nesha Leong Service: (none) Author Type: Nurse Practitioner Type: Progress Notes Filed: 06/23/2017 2:25 PM Note Text: Renetta Lovell is a 31 year old female who presents for vaginal pruritis for 3 days. No OTC treatment. - 4 week gestation. Vaginal discharge: none. Itching: YES Dyspareunia: no SA since onset Fever/chills: No Abdominal pain: No Bladder: Negative for dysuria or frequency Bowel: No blood in stool, pain with BM, tarry stool, persistent diarrhea or constipation Any new sexual partners or concern for STD exposure: No Any history of STDs: None Does your partner have any new complaints: No Are you currently taking any medications to treat vaginitis: No Do you use feminine sprays, douches or deodorants: No Menstrual cycle: LMP 315 - 4 week gestation Last pap: 2016, normal - done at [facility] Past medical, surgical, social history, medications and allergies reviewed and updated. OBJECTIVE: BP 110/64 Ht 5' 5.16 (1.66m) Wt 207 lb 12.8 oz (94.3kg) LMP 05/20/2017 BMI 34.41 kg/(m2). GENERAL: Well developed, well nourished in no apparent distress ABDOMEN: soft, non-tender and no masses PELVIC: external genitalia normal, normal Bartholin's glands, urethra, Wrenshall's glands, no vulvar lesions, no cervical lesions, good vaginal support, normal appearing perineal body and perianal region, abnormal discharge scant thick white discharge BIMANUAL: uterus normal size, shape and consistency, no adnexal masses and non-tender. ASSESSMENT/PLAN: 1. Vagina itching - ICD9: 698.1, ICD10: L29.8 - Suspect vaginal yeast. Advised to treat with OTC clotrimazole or miconazole x 7 days. May wait until notified of test results before treating. - Probiotic - BACT/EVER VAG GRAM STAIN Follow-up as needed. Has upcoming initial OB appointment 07/16/17. Nesha Leong APRN.NICKOLAS CORBETTOV Observed: 06/23/2017 Status: COMPLETED Source: [place] 2:00 PM [facility] REPOSITORY Office Visit (WOOB) RENETTA LOVELL ([id number]) 1985 F Date Time Provider Department 06/23/17 2:00 PM NESHA LEONG (EXPLOSIVE ORDNANCE MANAGER) WOOB During your visit today, we recorded the following information about you: Blood pressure Weight Height Last Period 110/64 94.3 kg 1.655 m 05/20/17 Nesha Leong APRN.CNP 06/23/2017 2:25 PM Signed Renetta Lovell is a 31 year old female who presents for vaginal pruritis for 3 days. No OTC treatment. - 4 week gestation. Vaginal discharge: none. Itching: YES Dyspareunia: no SA since onset Fever/chills: No Abdominal pain: No Bladder: Negative for dysuria or frequency Bowel: No blood in stool, pain with BM, tarry stool, persistent diarrhea or constipation Any new sexual partners or concern for STD exposure: No Any history of STDs: None Does your partner have any new complaints: No Are you currently taking any medications to treat vaginitis: No Do you use feminine sprays, douches or deodorants: No Menstrual cycle: LMP 05/20 - 4 week gestation Last pap: 2016, normal - done at [facility] Past medical, surgical, social history, medications and allergies reviewed and updated. OBJECTIVE: BP 110/64 Ht 5' 5.16ANDquot; (1.66m) Wt 207 lb 12.8 oz (94.3kg) LMP 05/20/2017 BMI 34.41 kg/(m2). GENERAL: Well developed, well nourished in no apparent distress ABDOMEN: soft, non-tender and no masses PELVIC: external genitalia normal, normal Bartholin's glands, urethra, Wrenshall's glands, no vulvar lesions, no cervical lesions, good vaginal support, normal appearing perineal body and perianal region, abnormal discharge scant thick white discharge BIMANUAL: uterus normal size, shape and consistency, no adnexal masses and non-tender. ASSESSMENT/PLAN: 1. Vagina itching - ICD9: 698.1, ICD10: L29.8 - Suspect vaginal yeast. Advised to treat with OTC clotrimazole or miconazole x 7 days. May wait until notified of test results before treating. - Probiotic - BACT/EVER VAG GRAM STAIN Follow-up as needed. Has upcoming initial OB appointment 07/16/17. Nesha Leong APRN.NICKOLAS Leong APRN.NICKOLAS 06/23/2017 2:18 PM Signed Cassy-noelle 3 Referring Provider: SELF [200] Allergies As of Date: 06/23/2017 Noted Allergy Reaction PSEUDOEPHEDRINE-GUAIFENESIN 04/16/2017 14 - Other: See Comments Date Reviewed: 06/23/2017 Reviewed by: Nesha Leong - Fully Assessed Reason for Visit: Vaginal Problem [117] Primary Visit Diagnosis:Vagina itching [L29.8] Order(s):BACT/EVER VAG GRAM STAIN [SQBVCNSM] Order #: [id number] FUTURE Prescriptions as of 06/23/2017 Sig: ORAL Take 1 tablet by mouth once d* LACTOBACILLUS ACIDOPHILUS 10 * Take by mouth once daily. POLYETHYLENE GLYCOL 3350 17 G* Take 17 g by mouth twice odell* Medication notes this encounter ORAL >> Fátima Mata MA 06/23/2017 1:55 PM >> FÁTIMA MATA MA WedJun 23, 2017 1:55 PM LACTOBACILLUS ACIDOPHILUS 10 BILLION CELL CAPSULE >> Fátima Mata DREW 06/23/2017 1:55 PM >> FÁTIMA MATA MA WedJun 23, 2017 1:55 PM Not taking SULFAMETHOXAZOLE ORAL >> Fátima Mata DREW 06/23/2017 1:55 PM >> FÁTIMA MATA MA WedJun 23, 2017 1:55 PM Not taking MUCINEX SINUS-MAX DY-NT (DXYL) ORAL >> Fátima Mata DREW 06/23/2017 1:54 PM >> FÁTIMA MATA MA WedJun 23, 2017 1:54 PM Not taking IBUPROFEN 600 MG TABLET >> Fátima Mata DREW 06/23/2017 1:55 PM >> FÁTIMA MATA MA WedJun 23, 2017 1:55 PM Not taking CALCIUM ORAL >> Fátima Mata DREW 06/23/2017 1:54 PM >> FÁTIMA MATA MA WedJun 23, 2017 1:54 PM Not taking Problem List As Of Date 06/23/2017 Noted Resolved Biliary dyskinesia [K82.8] INVALID FOR* GERD (gastroesophageal reflux disease) [K21.9] Depression [F32.9] Hiatal hernia [K44.9] Migraines [G43.909] Subclinical hyperthyroidism [E05.90] INVALID FOR* Other instructions from your clinician: Cassy-noelle 3 Medications Discontinued During This Encounter lansoprazole (PREVACID) 30 mg capsule 06/23/2017 Class: Historical Med Route: ORAL Sig: Take 30 mg by mouth once daily. Disc: Reason for discontinue is not on file. MAGNESIUM ORAL 06/23/2017 Class: Historical Med Route: ORAL Sig: Take 250 mg by mouth once daily. Disc: Reason for discontinue is not on file. CALCIUM ORAL 06/23/2017 Class: Historical Med Route: ORAL Sig: Take 1 tablet by mouth once daily. Disc: Reason for discontinue is not on file. SUCRALFATE ORAL 06/23/2017 Class: Historical Med Route: ORAL Sig: Take 1 tablet by mouth as needed. Disc: Reason for discontinue is not on file. HYDROcodone-acetaminophen (NORCO) 5-* 20 t* 0 04/07/2016 06/23/2017 Class: Print RX Route: ORAL Sig: Take 1-2 tablets by mouth every 4 hours as needed. Disc: Reason for discontinue is not on file. ibuprofen (MOTRIN) 600 mg tablet 28 t* 0 03/05/2017 06/23/2017 Class: Print RX Route: ORAL Sig: Take 1 tablet by mouth every 6 hours as needed for Pain or Fever. Disc: Reason for discontinue is not on file. DOXYLAM/PE/DM/ACETAMINOPHEN/GG (MUCI* 06/23/2017 Class: Historical Med Route: ORAL Sig: Take by mouth twice daily. Disc: Reason for discontinue is not on file. SULFAMETHOXAZOLE ORAL 06/23/2017 Class: Historical Med Route: ORAL Sig: Take by mouth twice daily. Disc: Reason for discontinue is not on file. Encounter Status:Closed by NESHA LEONG on 06/23/17 Observed: 06/23/2017 Status: F Source: [place] BACT/CAND VAG GRM ST 1:48 AM [facility] REPOSITORY Sp. Request/Comment: - Swab Smear Result - Stain results consistent with normal vaginal cassy. No Yeast observed No Polymorphonuclear Leukocytes Performed By: #### BVCNSM #### [facility] [address] [place] [address] ALLERGIES ALLERGIES DATE TYPE / CODE NAME / CODE REACTION SEVERITY SOURCE 02/17/2018 Drug pseudoephedrine/ Other Unknown [facility] Allergy/416 [id number]([facility] 789373(SNOM M) Repository ED CT) 04/16/2017 DRUG/[id number] PSEUDOEPHEDRINE- OTHER: SEE C [facility] 003(SNOMED GUAIFENESIN [address]) Repository Drug NO KNOWN [facility] Class/11123 ALLERGIES [facility] [place] 1003(SNOMED Repository CT) ENCOUNTERS ENCOUNTERS ADMIT/DISCHARGE ACCOUNT ADMITTING ENCOUNTER LOCATION SOURCE NUMBER CLASS 02/24/2018/02/25/20 [id number] Ambulatory [address] Repository 02/24/2018 [id number] Shahab, Ambulatory [facility] ing:WP Repository 02/17/2018/02/21/20 [id number] Robb Rubio Inpatient [facility] ing:WPRoom: Repository [id number]: 1 02/17/2018 [id number] Robb Rubio Ambulatory [facility] ing:WP Repository 02/08/2018/02/10/20 [id number] Ambulatory [facility] [address] Repository 02/04/2018/02/08/20 [id number] Ambulatory [facility] [address] [place] Repository 01/28/2018/02/01/20 [id number] Ambulatory [facility] [address] [place] Repository 01/20/2018/01/22/20 [id number] Ambulatory [facility] [address] [place] Repository 01/13/2018/01/18/20 [id number] Ambulatory [facility] [address] [place] Repository 01/07/2018/01/11/20 [id number] Ambulatory [facility] [address] [place] Repository 12/24/2017/12/28/19 [id number] Ambulatory [facility] [address] [place] Repository 12/24/2017/12/28/19 [id number] Ambulatory [facility] [address] [place] [facility] Repository 12/10/2017/12/14/19 [id number] Ambulatory [facility] [place] Repository 11/26/2017/11/27/19 [id number] Ambulatory [facility] [place] Repository 11/26/2017/11/30/19 [id number] Ambulatory [facility] [place] Repository 11/17/2017/11/19/19 [id number] Ambulatory [facility] [place] Repository 11/05/2017/11/10/19 [id number] Ambulatory [facility] [place] Repository 10/13/2017/10/15/19 [id number] Ambulatory [facility] [place] Repository 10/08/2017/10/12/19 [id number] Ambulatory [facility] [place] [facility] Repository 10/08/2017/10/12/19 [id number] Ambulatory [facility] [place] Repository 09/10/2017/09/11/19 [id number] Ambulatory [facility] [place] Repository 09/10/2017/09/11/19 [id number] Ambulatory [facility] [place] Repository 09/10/2017/09/11/19 [id number] Ambulatory [facility] [place] Repository 08/19/2017/08/20/19 [id number] Ambulatory [facility] [address] [place] Repository 08/13/2017 [id number] Ambulatory [facility] Repository 08/13/2017/08/19/19 [id number] Ambulatory [address] Repository 08/13/2017/08/14/19 [id number] Ambulatory [address] Repository 07/16/2017/07/17/19 [id number] Ambulatory [address] Repository 07/16/2017/07/21/19 [id number] Ambulatory [address] Repository 07/06/2017 [id number] Ambulatory [facility] Repository 06/23/2017/06/26/19 [id number] Ambulatory [address] Repository PAYERS PAYERS ENCOUNTER GUARANTOR PAYER SUBSCRIBER SOURCE 02/24/2018 RENETTA L Primary RENETTA L Jadiel [id number] FABIEN Insurance:ANTHEMPolic EMERTDOB: [facility] [place] Number: [id number] [id number]: 440 [id number] Repository [phone] () Date:[id number] [address] [place] [address] [id number]: 02/24/2018 Secondary NOT GIVENUNK [place] Insurance:SELF PAY [facility] Number: Effective Repository Date:2018-01-06 02/17/2018 RENETTA L Primary RENETTA L Jadiel [id number] FABIEN Insurance:ANTHEMPolic EMERTDOB: [facility] [place] Number: [id number] [address]Zwe: (440 [id number] Repository [phone] () Date:[id number] [address]IV: 02/17/2018 Secondary NOT GIVENUNK [place] Insurance:SELF PAY [facility] Number: Effective Repository Date:2018-02-04 02/17/2018 RENETTA L Primary RENETTA L [place] [id number] FABIEN Insurance:ANTHEMPolic EMERTDOB: [facility] [place] Number: [id number] [facility] [address]Quk: (440 [id number] Repository [phone] () Date:[id number], [place] [address]DB: 02/17/2018 Secondary NOT GIVENUNK Jadiel Insurance:SELF PAY [facility] Number: Effective Repository Date:2018-02-10
== END 2018-02-20 12:50 | disposition home or self-care (01) | DRG 788 ==
PROVIDERS: Admitting Provider Obstetrics & Gynecology; Family Provider Family Medicine; PCP Family Medicine; Referring Provider Obstetrics & Gynecology; Visit Provider Obstetrics & Gynecology
PROC: 10D00Z1 Extraction of Products of Conception, Low, Open Approach (ICD-10-PCS; CPT 59514; principal; 2018-02-17 11:45)
DX: O32.1XX0 Maternal care for breech presentation, not applicable or unspecified (principal); Z3A.39 39 weeks gestation of pregnancy; Z37.0 Single live birth
CPT/HCPCS: 85025; 85027; 86850; 86900; 99218; J7120; A4216; G0378